=== PATIENT | female | born 1955 | race Caucasian/White ===

== ENCOUNTER → 2018-09-12 | Outpatient (CLI) | payer BC ==
--- NOTE | 2018-09-12 10:45 | MM ---
Reason for exam: additional evaluation requested from prior study. Last mammogram was performed 2 years and 8 months ago. History: Patient is postmenopausal. Benign excisional biopsy of the right breast, 1995. Taking estrogen beginning at age 49. Taking progesterone beginning at age 49. Physical Findings: Nurse Summary: 2cm nodule in the right breast at 10-11 o'clock (nurse raz). MG 3D Diag Mammo W/Cad GIL Bilateral CC and MLO view(s) were taken. Prior study comparison: January 17, 2016, bilateral MG screening mammo w CAD. May 14, 2014, bilateral MG screening mammo w CAD. The breast tissue is heterogeneously dense. This may lower the sensitivity of mammography. Stable benign calcifications. Nodular density at site of palpable abnormality. ASSESSMENT: Incomplete: need additional imaging evaluation, BI-RAD 0 RECOMMENDATION: Ultrasound of the right breast.
--- NOTE | 2018-09-12 10:53 | USB ---
Reason for exam: additional evaluation requested from abnormal screening. History: Patient is postmenopausal. Benign excisional biopsy of the right breast, 1995. Taking estrogen beginning at age 49. Taking progesterone beginning at age 49. US Breast Limited RT Right limited breast ultrasound including focal area of concern, retroareolar and axilla demonstrates a 0.4 x 0.3 x 0.5cm cystic lesion at 9 o'clock, a 0.6 x 0.3 x 0.5cm cystic lesion at 9 o'clock, a 0.5 x 0.3 x 0.4cm mixed lesion at 10 o'clock and ducts at 10 o'clock. These results were verbally communicated with the patient and result sheet given to the patient on 09/12/18. ASSESSMENT: Benign, BI-RAD 2 RECOMMENDATION: Routine screening mammogram of both breasts in 1 year. Manage patient on a clinical basis.
== END | disposition home or self-care (01) ==
LOC: RADMAMWWP 08:22
PROVIDERS: ATTEND Internal Medicine
DX: R92.8 Other abnormal and inconclusive findings on diagnostic imaging of breast (principal)
CPT/HCPCS: 77062; 77066

== ENCOUNTER → 2018-10-10 | Outpatient (CLI) | payer BC ==
--- NOTE | 2018-10-10 12:54 | BD ---
EXAMINATION TYPE: Axial Bone Density DATE OF EXAM: 10/10/2018 CLINICAL HISTORY: Postmenopausal female. Osteoporosis screening. Height: 63 inches Weight: 180 FRAX RISK QUESTIONS: Alcohol (3 or more units per day): no Family History (Parent hip fracture): no Glucocorticoids (More than 3mos): no (Ex: prednisone, prednisolone, methylprednisolone, dexamethasone, and hydrocortisone). History of Fracture in Adulthood: yes, ankle Secondary Osteoporosis: 1. Type 1 Diabetes: no 2. Hyperthyroidism: no 3. Menopause before 45: no 4. Malnutrition: no 5. Chronic liver disease: no Rheumatoid Arthritis: no Current Tobacco Use: no RISK FACTORS HISTORY OF: Family History of Osteoporosis: unsure Active: yes Diet low in dairy products/other sources of calcium: cannot have dairy Postmenopausal woman: yes Take estrogen and/or progesterone medications: not now How long: about 10 years Lost more than 2 inches in height since high school: no Frequent falls: no Poor Health: no Hyperparathyroidism: no Adrenal Insufficiency: no MEDICATIONS: Prednisone or other steroids: no Thyroid Medications: yes Which medication: various over the years How Lon-30 years Osteoporosis Medications: no Additional Medications: calcium/VitD Additional History: EXAM MEASUREMENTS: Bone mineral densitometry was performed using the Deltasight System. Bone mineral density as measured about the Lumbar spine is: ----- L1-L4(G/cm2): 1.307 T Score Values are as follows: ----- L2: 0.6 ----- L3: 1.4 ----- L4: 1.9 ----- L1-L4: 1.1 Bone mineral density has: Decreased -2.0% since study of: 01/17/2016 Bone mineral density about the R hip (g/cm2): 0.982 Bone mineral density about the L hip (g/cm2): 0.987 T Score values are as follows: -----R Neck: -0.4 -----L Neck: -0.4 -----R Total: 0.4 -----L Total: 0.5 Bone mineral density has: Decreased -1.8% since study of: 01/17/2016 IMPRESSION: Normal (Values between +1 and -1 indicate normal bone mass). Consider repeating this study in 5 year s or sooner if there is some new clinical indication. NOTE: T-SCORE=SD OF THE YOUNG ADULT MEAN.
== END | disposition home or self-care (01) ==
LOC: RADBDWWP 09-06 09:42
PROVIDERS: ATTEND Internal Medicine
DX: Z13.820 Encounter for screening for osteoporosis (principal)
CPT/HCPCS: 77080

== ENCOUNTER → 2019-08-01 | Outpatient (CLI) | payer BC ==
--- NOTE | 2019-08-01 10:19 | MM ---
Reason for exam: clinical finding. Last mammogram was performed 11 months ago. History: Patient is postmenopausal. Benign excisional biopsy of the right breast, 1995. Taking estrogen beginning at age 49. Taking progesterone beginning at age 49. Indicated problem(s): pain in the left breast. Physical Findings: Nurse did not find any significant physical abnormalities on exam. MG 3D Diag Mammo W/Cad LT CC and MLO view(s) were taken of the left breast. Prior study comparison: September 12, 2018, bilateral MG 3d diag mammo w/cad GIL. January 17, 2016, bilateral MG screening mammo w CAD. The breast tissue is heterogeneously dense. This may lower the sensitivity of mammography. Benign appearing calcifications in the left breast. No suspicious abnormality. These results were verbally communicated with the patient and result sheet given to the patient on 08/01/19. ASSESSMENT: Incomplete: need additional imaging evaluation, BI-RAD 0 RECOMMENDATION: Ultrasound of the left breast. (pain)
--- NOTE | 2019-08-01 10:21 | USB ---
Reason for exam: additional evaluation requested from abnormal screening. History: Patient is postmenopausal. Benign excisional biopsy of the right breast, 1995. Taking estrogen beginning at age 49. Taking progesterone beginning at age 49. US Breast LT Left complete breast ultrasound includes all four quadrants, the retroareolar region and axilla. Finding demonstrates ductal ectasia at the posterior nipple, a 0.5 x 0.3 x 0.4cm oval, cystic, benign lesion at 2 o'clock and a 0.8 x 0.4 x 0.5cm oval, cystic, benign cluster at 1 o'clock. These results were verbally communicated with the patient and result sheet given to the patient on 08/01/19. ASSESSMENT: Benign, BI-RAD 2 RECOMMENDATION: Routine screening mammogram of both breasts in 2 months. Back on schedule for September 2019.
== END | disposition home or self-care (01) ==
LOC: RADMAMWWP 08:19
PROVIDERS: ATTEND Obstetrics & Gynecology
DX: N64.4 Mastodynia (principal); R92.8 Other abnormal and inconclusive findings on diagnostic imaging of breast
CPT/HCPCS: 77061; 77065

== ENCOUNTER → 2019-11-29 | Outpatient (CLI) | payer BC ==
--- NOTE | 2019-11-30 13:46 | MM ---
Reason for exam: screening (asymptomatic). Last mammogram was performed 4 months ago. History: Patient is postmenopausal. Benign excisional biopsy of the right breast, 1995. Taking estrogen beginning at age 49. Taking progesterone beginning at age 49. Physical Findings: A clinical breast exam by your physician is recommended on an annual basis and results should be correlated with mammographic findings. MG 3D Screening Mammo W/Cad Bilateral CC and MLO view(s) were taken. Prior study comparison: August 01, 2019, left breast MG 3d diag mammo w/cad LT. September 12, 2018, bilateral MG 3d diag mammo w/cad GIL. The breast tissue is heterogeneously dense. This may lower the sensitivity of mammography. Stable benign calcifications. There is no discrete abnormality. No significant changes when compared with prior studies. ASSESSMENT: Benign, BI-RAD 2 RECOMMENDATION: Routine screening mammogram of both breasts in 1 year.
== END | disposition home or self-care (01) ==
LOC: RADMAMWWP 12:35
PROVIDERS: ATTEND Obstetrics & Gynecology
DX: Z12.31 Encounter for screening mammogram for malignant neoplasm of breast (principal)
CPT/HCPCS: 77063; 77067

== ENCOUNTER 2021-10-06 09:54 | Observation (INO) | payer BC ==
[2021-10-06] MEDS ORDERED: NITROGLYCERIN OINT 1 INCH/GM PACKET TOPICAL STA (10:38)
--- NOTE | 2021-10-06 10:41 | ED ---
General Adult HPI - General Chief complaint: Chest Pain Stated complaint: chest tightness, lightheaded Time Seen by Provider: 10/06/21 10:20 Source: patient, RN notes reviewed Mode of arrival: ambulatory Limitations: no limitations - History of Present Illness Initial comments: Patient is a pleasant 65-year-old female presenting to the emergency department with concerns for chest discomfort. Onset of symptoms was yesterday. Discomfort is mild. Discomfort feels like indigestion. Her some mild associated back discomfort. Patient has some associated dyspnea, lightheadedness, nausea and sweating. No history of similar symptoms previously. No leg pain or leg swelling. Discomfort is currently rated 2 or 3/10. Blood pressure was as high as 180/104 home. - Related Data Home Medications Medication Instructions Recorded Confirmed Albuterol Sulfate [Proventil Hfa] 2 puff INHALATION RT-Q4H PRN 10/06/21 10/06/21 Cholecalciferol [Vitamin D3 (25 25 mcg PO DAILY 10/06/21 10/06/21 Mcg = 1000 Iu)] LORazepam [Ativan] 0.5 - 1 mg PO Q6H PRN 10/06/21 10/06/21 Levothyroxine Sodium [Tirosint] 112 mcg PO DAILY 10/06/21 10/06/21 Mometasone Furoate [Asmanex Hfa] 1 puff INHALATION RT-BID PRN 10/06/21 10/06/21 Multivitamins, Thera [Multivitamin 1 tab PO DAILY 10/06/21 10/06/21 (formulary)] Allergies Allergy/AdvReac Type Severity Reaction Status Date / Time aspirin Allergy Abdominal Verified 10/06/21 11:32 Pain,VOMITING clarithromycin [From Biaxin] Allergy Unknown Verified 10/06/21 11:32 codeine Allergy Nausea & Verified 10/06/21 11:32 Vomiting latex Allergy Rash/Hives, Verified 10/06/21 11:32 SWELLING levofloxacin [From Levaquin] Allergy Hallucinati Verified 10/06/21 11:32 ons Penicillins Allergy Rash/Hives Verified 10/06/21 11:32 Sulfa (Sulfonamide Allergy Rash/Hives Verified 10/06/21 11:32 Antibiotics) cephalexin monohydrate AdvReac Abdominal Verified 10/06/21 11:32 [From Keflex] Pain Review of Systems ROS Statement: Those systems with pertinent positive or pertinent negative responses have been documented in the HPI. ROS Other: All systems not noted in ROS Statement are negative. Constitutional: Denies: fever Eyes: Denies: eye pain ENT: Denies: ear pain Respiratory: Reports: as per HPI Cardiovascular: Reports: as per HPI, chest pain Endocrine: Denies: fatigue Gastrointestinal: Denies: abdominal pain Genitourinary: Denies: dysuria Musculoskeletal: Reports: as per HPI Skin: Denies: rash Neurological: Denies: weakness Past Medical History Past Medical History: Asthma Additional Past Medical History / Comment(s): "PRE DIABETIC-INSULIN RESISTANT" History of Any Multi-Drug Resistant Organisms: None Reported Past Surgical History: Breast Surgery, Section, Cholecystectomy, Hysterectomy, Tonsillectomy, Uterine Ablation Additional Past Surgical History / Comment(s): VARICOSE VEIN-RIGHT LEG,BLADDER SUSPENSION Past Anesthesia/Blood Transfusion Reactions: Motion Sickness, Postoperative Nausea & Vomiting (PONV) Past Psychological History: No Psychological Hx Reported Smoking Status: Former smoker Past Alcohol Use History: None Reported Past Drug Use History: None Reported - Past Family History Sister(s) Family Medical History: Cancer Mother Family Medical History: Deep Vein Thrombosis (DVT) General Exam Limitations: no limitations General appearance: alert, in no apparent distress Head exam: Present: normocephalic Eye exam: Present: normal appearance Neck exam: Present: normal inspection Respiratory exam: Present: normal lung sounds bilaterally. Absent: chest wall tenderness Cardiovascular Exam: Present: regular rate, normal rhythm Expanded Peripheral pulses: 2+: Radial (R), Radial (L), Dorsalis Pedis (R), Dorsalis Pedis (L) GI/Abdominal exam: Present: soft. Absent: tenderness Extremities exam: Present: normal inspection. Absent: pedal edema, calf tenderness Back exam: Present: normal inspection. Absent: tenderness Neurological exam: Present: alert Psychiatric exam: Present: normal affect, normal mood Skin exam: Present: normal color Course Vital Signs 10/06/21 10/06/21 10:11 11:00 Temperature 98.1 F Pulse Rate 82 69 Respiratory 18 18 Rate Blood Pressure 171/99 147/89 O2 Sat by Pulse 99 98 Oximetry EKG Findings - EKG Comments: EKG Findings:: No sinus rhythm rate 67. ND 182. QRS 94. QT 402. QTC 424. Left axis. LVH criteria. No acute ST change. Medical Decision Making - Medical Decision Making Patient reevaluated. Patient and family updated on results and plan. Both are specifically updated on CT results. Case also discussed with Dr. Workman, covering for Dr. moore who will admit. Also updated on CT results. - Lab Data Result diagrams: 10/06/21 10:58 10/06/21 10:58 Lab Results 10/06/21 10/06/21 10/06/21 Range/Units 10:58 10:58 10:58 WBC 8.0 (3.8-10.6) k/uL RBC 4.62 (3.80-5.40) m/uL Hgb 14.5 (11.4-16.0) gm/dL Hct 42.5 (34.0-46.0) % MCV 92.1 (80.0-100.0) fL MCH 31.3 (25.0-35.0) pg MCHC 34.0 (31.0-37.0) g/dL RDW 13.6 (11.5-15.5) % Plt Count 267 (150-450) k/uL MPV 6.5 Neutrophils % 68 % Lymphocytes % 25 % Monocytes % 5 % Eosinophils % 2 % Basophils % 0 % Neutrophils # 5.4 (1.3-7.7) k/uL Lymphocytes # 2.0 (1.0-4.8) k/uL Monocytes # 0.4 (0-1.0) k/uL Eosinophils # 0.2 (0-0.7) k/uL Basophils # 0.0 (0-0.2) k/uL PT 9.5 (9.0-12.0) sec INR 0.9 (<1.2) APTT 21.7 L (22.0-30.0) sec D-Dimer 0.87 H (<0.60) mg/L FEU Sodium 137 (137-145) mmol/L Potassium 4.0 (3.5-5.1) mmol/L Chloride 106 (98-107) mmol/L Carbon Dioxide 25 (22-30) mmol/L Anion Gap 6 mmol/L BUN 14 (7-17) mg/dL Creatinine 0.70 (0.52-1.04) mg/dL Est GFR (CKD-EPI)AfAm >90 (>60 ml/min/1.73 sqM) Est GFR (CKD-EPI)NonAf >90 (>60 ml/min/1.73 sqM) Glucose 102 H (74-99) mg/dL Calcium 9.2 (8.4-10.2) mg/dL Magnesium 1.9 (1.6-2.3) mg/dL Total Bilirubin 0.5 (0.2-1.3) mg/dL AST 21 (14-36) U/L ALT 25 (4-34) U/L Alkaline Phosphatase 84 (38-126) U/L Troponin I (0.000-0.034) ng/mL Total Protein 6.7 (6.3-8.2) g/dL Albumin 3.8 (3.5-5.0) g/dL 10/06/21 Range/Units 10:58 WBC (3.8-10.6) k/uL RBC (3.80-5.40) m/uL Hgb (11.4-16.0) gm/dL Hct (34.0-46.0) % MCV (80.0-100.0) fL MCH (25.0-35.0) pg MCHC (31.0-37.0) g/dL RDW (11.5-15.5) % Plt Count (150-450) k/uL MPV Neutrophils % % Lymphocytes % % Monocytes % % Eosinophils % % Basophils % % Neutrophils # (1.3-7.7) k/uL Lymphocytes # (1.0-4.8) k/uL Monocytes # (0-1.0) k/uL Eosinophils # (0-0.7) k/uL Basophils # (0-0.2) k/uL PT (9.0-12.0) sec INR (<1.2) APTT (22.0-30.0) sec D-Dimer (<0.60) mg/L FEU Sodium (137-145) mmol/L Potassium (3.5-5.1) mmol/L Chloride (98-107) mmol/L Carbon Dioxide (22-30) mmol/L Anion Gap mmol/L BUN (7-17) mg/dL Creatinine (0.52-1.04) mg/dL Est GFR (CKD-EPI)AfAm (>60 ml/min/1.73 sqM) Est GFR (CKD-EPI)NonAf (>60 ml/min/1.73 sqM) Glucose (74-99) mg/dL Calcium (8.4-10.2) mg/dL Magnesium (1.6-2.3) mg/dL Total Bilirubin (0.2-1.3) mg/dL AST (14-36) U/L ALT (4-34) U/L Alkaline Phosphatase (38-126) U/L Troponin I <0.012 (0.000-0.034) ng/mL Total Protein (6.3-8.2) g/dL Albumin (3.5-5.0) g/dL - Radiology Data Radiology results: report reviewed (CT angios chest shows no pulmonary embolism. Right apex nodule versus pneumonitis versus other.), image reviewed (Chest x- ray shows no acute process) Disposition Clinical Impression: Chest pain Disposition: ADMITTED IP TO THIS [facility] Is patient prescribed a controlled substance at d/c from ED?: No Referrals: Linda Moore MD [Primary Care Provider] - 1-2 days Decision Time: 13:33
[2021-10-06 11:08] LABS: Basophils % (A) 0 %; Eosinophils # (A) 0.2 k/uL (0-0.7); Eosinophils % (A) 2 %; HCT 42.5 % (34.0-46.0); HGB 14.5 gm/dL (11.4-16.0); Lymphocytes % (A) 25 %; MCH 31.3 pg (25.0-35.0); MCV 92.1 fL (80.0-100.0); Mean Platelet Volume 6.5; Monocytes # (A) 0.4 k/uL (0-1.0); Monocytes % (A) 5 %; Neutrophils # (A) 5.4 k/uL (1.3-7.7); Neutrophils % (A) 68 %; Platelet Count 267 k/uL (150-450); RBC 4.62 m/uL (3.80-5.40); RDW 13.6 % (11.5-15.5)
--- NOTE | 2021-10-06 11:31 | XR ---
EXAMINATION TYPE: XR chest 2V DATE OF EXAM: 10/06/2021 COMPARISON: NONE TECHNIQUE: PA and lateral views submitted. HISTORY: Chest pain FINDINGS: The lungs are clear and there is no pneumothorax, pleural effusion, or focal pneumonia. Hypertrophi c and degenerative changes of the spine. IMPRESSION: 1. No acute process.
[2021-10-06 11:32] LABS: INR 0.9 (<1.2); Prothrombin Time 9.5 sec (9.0-12.0)
[2021-10-06 11:38] LABS: Partial Thromboplastin Time 21.7 sec (22.0-30.0)
[2021-10-06 11:45] LABS: ALT 25 U/L (4-34); AST 21 U/L (14-36); African American GFR (CKD) >90 (>60 ml/min/1.73 sqM); Albumin 3.8 g/dL (3.5-5.0); Alkaline Phosphatase 84 U/L (38-126); Anion Gap 6 mmol/L; Blood Urea Nitrogen 14 mg/dL (7-17); Calcium 9.2 mg/dL (8.4-10.2); Carbon Dioxide 25 mmol/L (22-30); Chloride 106 mmol/L (98-107); Glucose 102 mg/dL (74-99); Magnesium 1.9 mg/dL (1.6-2.3); Non-African American GFR(CKD) >90 (>60 ml/min/1.73 sqM); Sodium 137 mmol/L (137-145); Total Bilirubin 0.5 mg/dL (0.2-1.3); Total Protein 6.7 g/dL (6.3-8.2)
--- NOTE | 2021-10-06 12:37 | CT ---
CT CHEST FOR PULMONARY EMBOLISM. EXAMINATION TYPE: CT angio chest DATE OF EXAM: 10/06/2021 INDICATION: Elevated d dimer CT DLP: 430.6 mGycm, Automated exposure control for dose reduction was used. CONTRAST: Patient injected with 100 mL of Isovue 370. COMPARISON: None TECHNIQUE: CT of the chest is performed on a spiral scan at 2 mm thick sections. Study is performed with intravenous contrast timed for evaluation for pulmonary embolism. This will limit additional po rtions of the evaluation. 3-D MIP images reconstructed by the technologist are reviewed on the compu ter in the coronal and sagittal planes. FINDINGS: No persistent filling defects are evident to suggest an acute pulmonary embolism. No mediastinal or hilar adenopathy enlarged by CT criteria is evident. The ascending aorta diameter at the level of the main pulmonary artery is 3.6 cm. The main pulmonary artery diameter at the bifur cation is 2.9 cm. There is an irregular area of pneumonitis within the right apex measuring approximately 1.2 cm in bladimir meter. Neoplasm and infectious etiology should be considered. Follow-up is recommended. Limited CT section through the upper abdomen are unremarkable. IMPRESSIONS: 1. No acute pulmonary embolism. 2. Irregular nodularity or pneumonitis right apex measuring 1.2 cm. Neoplasm and infectious etiologie s are within the differential. Follow-up is recommended.
[2021-10-06] MEDS ORDERED: LORazepam 1 MG TAB PO STA (13:33)
[2021-10-06] MEDS ORDERED: NITROGLYCERIN SL TABS 0.4 MG TAB SUBLINGUAL PRN (13:33)
[2021-10-06] MEDS ORDERED: ALBUTEROL NEBULIZED 2.5 MG/3 ML INHALATION PRN (13:47)
[2021-10-06] MEDS ORDERED: ASPIRIN 325 MG TAB PO STA (13:48)
[2021-10-06] MEDS ORDERED: LORazepam 1 MG TAB PO PRN (14:31)
--- NOTE | 2021-10-06 18:15 | P.HPIM ---
History of Present Illness H&P Date: 10/06/21 Chief Complaint: Chest pain, hypertension 65-year-old woman with medical history of anxiety/panic disorder presented with chest pain, hypertension. Patient says that she's been anxious since Wednesday given that there are lots of preparations that she was responsible for the holidays and lots of family visiting her. She had a panic attack on Wednesday, and since that time is continued to be anxious. She has had episodes of panic before in which she is prescribed Ativan when necessary. She had to take her Ativan several times over the course of this previous week. Normally, she has 12 pills of Ativan which lasts for several months, however, she has had to use up her supply over this week. Today, she checked her blood pressure several times and noted that she was very hypertensive, in the 160s to 170s. She asked that her daughter, who is a nurse, take her blood pressure manually and this also demonstrated an elevated value. She then started to experience some chest pressure, which she relates that she feels is related to her anxiety, however, to be safe she present to the emergency room for further evaluation. She reports palpitations, chest pressure. She denies fevers, chills, nausea, vomiting, cough, dyspnea, abdominal pain, diarrhea, constipation, numbness/weakness. Patient is nervous about getting Covid while hospitalized. We discussed vac cination status, and she was told by her primary care physician that she should not get the Covid vaccine due to concerns of ALLERGIES and hypercoagulability, however, I did associate counsel the patient that this was not the case and that she should proceed with vaccination given the fact that Covid is far more likely to cause issues with blood clots within the vaccine. In the emergency room, patient was afebrile, 171/99, heart rate 82, 99% on room air. CBC was unremarkable. D-dimer was mildly elevated at 0.87. Chemistries were unremarkable. LFTs were unremarkable. Troponin was negative 2. Covid was negative. EKG demonstrated normal sinus rhythm with no ischemic changes. Chest x-ray was normal. CTA demonstrated right-sided apical pneumonitis versus nodularity, but patient is asymptomatic from this. Review of Systems All Systems reviewed and pertinent positives and negatives noted in HPI, all other symptoms are negative Past Medical History Past Medical History: Asthma Additional Past Medical History / Comment(s): "PRE DIABETIC-INSULIN RESISTANT" History of Any Multi-Drug Resistant Organisms: None Reported Past Surgical History: Breast Surgery, Section, Cholecystectomy, Hysterectomy, Tonsillectomy, Uterine Ablation Additional Past Surgical History / Comment(s): VARICOSE VEIN-RIGHT LEG,BLADDER SUSPENSION Past Anesthesia/Blood Transfusion Reactions: Motion Sickness, Postoperative Nausea & Vomiting (PONV) Past Psychological History: No Psychological Hx Reported Smoking Status: Former smoker Past Alcohol Use History: None Reported Past Drug Use History: None Reported - Past Family History Sister(s) Family Medical History: Cancer Mother Family Medical History: Deep Vein Thrombosis (DVT) Medications and Allergies Home Medications Medication Instructions Recorded Confirmed Type Albuterol Sulfate [Proventil Hfa] 2 puff INHALATION RT-Q4H PRN 10/06/21 10/06/21 History Cholecalciferol [Vitamin D3 (25 25 mcg PO DAILY 10/06/21 10/06/21 History Mcg = 1000 Iu)] LORazepam [Ativan] 0.5 - 1 mg PO Q6H PRN 10/06/21 10/06/21 History Levothyroxine Sodium [Tirosint] 112 mcg PO DAILY 10/06/21 10/06/21 History Mometasone Furoate [Asmanex Hfa] 1 puff INHALATION RT-BID PRN 10/06/21 10/06/21 History Multivitamins, Thera [Multivitamin 1 tab PO DAILY 10/06/21 10/06/21 History (formulary)] Allergies Allergy/AdvReac Type Severity Reaction Status Date / Time aspirin Allergy Abdominal Verified 10/06/21 11:32 Pain,VOMITING clarithromycin [From Biaxin] Allergy Unknown Verified 10/06/21 11:32 codeine Allergy Nausea & Verified 10/06/21 11:32 Vomiting latex Allergy Rash/Hives, Verified 10/06/21 11:32 SWELLING levofloxacin [From Levaquin] Allergy Hallucinati Verified 10/06/21 11:32 ons Penicillins Allergy Rash/Hives Verified 10/06/21 11:32 Sulfa (Sulfonamide Allergy Rash/Hives Verified 10/06/21 11:32 Antibiotics) cephalexin monohydrate AdvReac Abdominal Verified 10/06/21 11:32 [From Keflex] Pain Physical Exam Osteopathic Statement: *. No significant issues noted on an osteopathic structural exam other than those noted in the History and Physical/Consult. Vitals: Vital Signs Temp Pulse Resp BP Pulse Ox 10/06/21 11:00 69 18 147/89 98 10/06/21 10:11 98.1 F 82 18 171/99 99 Intake and Output 10/06/21 10/06/21 10/06/21 06:59 14:59 22:59 Other: Weight 86.183 kg Gen: awake, alert HEENT: normocephalic, atraumatic, good hearing acuity, moist mucous membranes Resp: good air exchange, breathing comfortably with no accessory muscle use, clear to auscultation bilaterally without wheezes or crackles CVS: good distal perfusion x 4, regular rate and rhythm without murmurs GI: soft, NTTP, ND : no SPT, no CVAT, velasco catheter not present MSK: no pitting edema, no clubbing Neuro: non-focal, moving all extremities Psych: cooperative, euthymic mood Results CBC & Chem 7: 10/06/21 10:58 10/06/21 10:58 Labs: Abnormal Lab Results - Last 24 Hours (Table) 10/06/21 10/06/21 Range/Units 10:58 10:58 APTT 21.7 L (22.0-30.0) sec D-Dimer 0.87 H (<0.60) mg/L FEU Glucose 102 H (74-99) mg/dL Assessment and Plan Assessment: Chest pressure Anxiety disorder -Admit to observation, telemetry -Trend troponins -Ativan when necessary -Losartan 25 mg daily -ASA, statin Pulmonary nodule Asthma -Patient will need repeat imaging in 6 months -Albuterol when necessary -Resume home ICS Patient is a full code
[2021-10-06] MEDS: NITROGLYCERIN OINT 1 INCH/GM PACKET TOPICAL SCH ×2 (19:58→23:53)
[2021-10-06] MEDS ORDERED: METOPROLOL TARTRATE 25 MG TAB PO SCH (21:00)
[2021-10-06] MEDS: FLUTICASONE 110 MCG INHALER INHALATION SCH (21:02)
[2021-10-06 21:24] VITALS: TEMP 97.5
[2021-10-07] MEDS: NITROGLYCERIN OINT 1 INCH/GM PACKET TOPICAL SCH (05:28)
[2021-10-07] MEDS ORDERED: LEVOTHYROXINE 112 MCG TAB PO SCH (06:30)
[2021-10-07 08:23] VITALS: BP 139/87; PULSE 64; RESP 17
[2021-10-07] MEDS: FLUTICASONE 110 MCG INHALER INHALATION SCH (08:36)
[2021-10-07] MEDS ORDERED: MULTIVITAMINS, THERA 1 EACH TAB PO SCH (09:00)
[2021-10-07] MEDS ORDERED: CHOLECALCIFEROL 25 MCG (1000 IU) TABLET PO SCH (09:00)
[2021-10-07] MEDS ORDERED: ASPIRIN 81 MG PO SCH (09:00)
--- NOTE | 2021-10-07 09:54 | P.CRDCN ---
History of Present Illness History of present illness: This is a 65 year old female with a past medical history of asthma, hypothyroidism, former tobacco use, anxiety. 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 We are consulted for chest pain. Patient presents to the emergency department with complaints of chest discomfort. Patient states that she's been anxious since Wednesday given that there are lots of preparations that she was responsible for the holidays and lots of family visiting her. She had a panic attack on Wednesday. She has had episodes of panic before in which she is prescribed Ativan when necessary. She states she has chest tightness in the center of her chest when her anxiety comes on, it is relieved once she is more relaxed. Her chest discomfort is nonradiating, nonexertional. She denies any associated shortness of breath, nausea, lightheadedness, dizziness, diaphoresis, palpitations, nausea. Yesterday, she had another episode of anxiety and chest discomfort, she checked her blood pressure several times and noted to be 160s/100s. She asked that her daughter, take her blood pressure manually and her BP remained elevated. She denies fevers, chills, nausea, vomiting, cough, dyspnea, abdominal pain, diarrhea, constipation, numbness/weakness. She denies any history of [place], coronary disease, hypertension, diabetes, stroke. She denies any family history of coronary artery disease. She does have a family history of hypertension. She states she did smoke but quit over 20 years ago. Patient pressure was elevated on admission 171/99, patient was started on metoprolol tartrate 25 mg twice a day. Her blood pressure and heart rate have improved DIAGNOSTICS EKG reveals sinus rhythm, heart rate 67, T wave inversion in lead III and aVF. No prior EKG to compare. CTA without acute pulmonary embolism. Irregular nodularity or pneumonitis right apex measuring 1.2 cm neoplasm infectious etiologies are within the differential Telemetry tracings indicate sinus rhythm, heart rate 5560s, occasionally tachycardic overnight. Chest xray no acute cardiopulmonary process Laboratory reviewed, CBC unremarkable, d-dimer 0.87, sodium 137, potassium 4.0, BUN 14, Serum creatinine 0.7, magnesium 1.9, troponin negative 3, cooperative 19 PCR negative Current home medications include multivitamin, levothyroxine 112mcg daily, when necessary Ativan, albuterol REVIEW OF SYSTEMS At the time of my exam: CONSTITUTIONAL: Denies fever or chills. +anxiety CARDIOVASCULAR: +chest pain, Denies shortness of breath, orthopnea, PND or palpitations. RESPIRATORY: Denies cough. GASTROINTESTINAL: Denies abdominal pain, diarrhea, constipation, nausea or vomiting. MUSCULOSKELETAL: Denies myalgias. NEUROLOGIC: Denies numbness, tingling, headache or weakness. ENDOCRINE: Denies fatigue, weight change, polydipsia or polyurina. GENITOURINARY: Denies burning, hematuria or urgency with micturation. HEMATOLOGIC: Denies history of anemia or bleeding. PHYSICAL EXAMINATION Blood pressure 133/78, heart rate 73, afebrile, oxygen saturation is greater than 92% on room air CONSTITUTIONAL: No apparent distress. HEENT: Head is normocephalic. Pupils are equal, round. Sclerae anicteric. Mucous membranes of the mouth are moist. No JVD. No carotid bruit. CHEST EXAMINATION: Lungs are clear to auscultation. No chest wall tenderness is noted on palpation or with deep breathing. HEART EXAMINATION: Regular rate and rhythm. S1, S2 heard. No murmurs, gallops or rub. ABDOMEN: Soft, nontender. Positive bowel sounds. EXTREMITIES: 2+ peripheral pulses, no lower extremity edema and no calf tenderness. SKIN: warm, dry NEUROLOGIC EXAMINATION: Patient is awake, alert and oriented x3. ASSESSMENT Chest pain, atypical, acute coronary syndrome has been ruled out History of asthma Hypothyroidism Anxiety PLAN -An acute coronary event has been ruled out with no EKG evidence of ischemia and negative cardiac enzymes. -Perform stress echo test to assess for stress induced cardiac ischemia. If abnormal will consider coronary angiography. -Continue metoprolol tartrate 25mg BID -If stress test is normal with no acute findings, okay to discharge from cardiology perspective. Patient didn't follow up outpatient. Thank you kindly for this consultation. Nurse Practitioner note has been reviewed, I agree with a documented findings and plan of care. Patient was seen and examined. Past Medical History Past Medical History: Asthma Additional Past Medical History / Comment(s): "PRE DIABETIC-INSULIN RESISTANT" History of Any Multi-Drug Resistant Organisms: None Reported Past Surgical History: Breast Surgery, Section, Cholecystectomy, Hysterectomy, Tonsillectomy, Uterine Ablation Additional Past Surgical History / Comment(s): VARICOSE VEIN-RIGHT LEG,BLADDER SUSPENSION Past Anesthesia/Blood Transfusion Reactions: Motion Sickness, Postoperative Nausea & Vomiting (PONV) Past Psychological History: No Psychological Hx Reported Smoking Status: Former smoker Past Alcohol Use History: None Reported Past Drug Use History: None Reported - Past Family History Sister(s) Family Medical History: Cancer Mother Family Medical History: Deep Vein Thrombosis (DVT) Medications and Allergies Home Medications Medication Instructions Recorded Confirmed Type Albuterol Sulfate [Proventil Hfa] 2 puff INHALATION RT-Q4H PRN 10/06/21 10/06/21 History Cholecalciferol [Vitamin D3 (25 25 mcg PO DAILY 10/06/21 10/06/21 History Mcg = 1000 Iu)] LORazepam [Ativan] 0.5 - 1 mg PO Q6H PRN 10/06/21 10/06/21 History Levothyroxine Sodium [Tirosint] 112 mcg PO DAILY 10/06/21 10/06/21 History Mometasone Furoate [Asmanex Hfa] 1 puff INHALATION RT-BID PRN 10/06/21 10/06/21 History Multivitamins, Thera [Multivitamin 1 tab PO DAILY 10/06/21 10/06/21 History (formulary)] Allergies Allergy/AdvReac Type Severity Reaction Status Date / Time aspirin Allergy Abdominal Verified 10/06/21 11:32 Pain,VOMITING clarithromycin [From Biaxin] Allergy Unknown Verified 10/06/21 11:32 codeine Allergy Nausea & Verified 10/06/21 11:32 Vomiting latex Allergy Rash/Hives, Verified 10/06/21 11:32 SWELLING levofloxacin [From Levaquin] Allergy Hallucinati Verified 10/06/21 11:32 ons Penicillins Allergy Rash/Hives Verified 10/06/21 11:32 Sulfa (Sulfonamide Allergy Rash/Hives Verified 10/06/21 11:32 Antibiotics) cephalexin monohydrate AdvReac Abdominal Verified 10/06/21 11:32 [From Keflex] Pain Physical Exam Vitals: Vital Signs Temp Pulse Resp BP Pulse Ox 10/06/21 11:00 69 18 147/89 98 10/06/21 10:11 98.1 F 82 18 171/99 99 Intake and Output 10/05/21 10/06/21 10/06/21 22:59 06:59 14:59 Other: Weight 86.183 kg Results 10/06/21 10:58 10/06/21 10:58 Cardiac Enzymes 10/06/21 10/06/21 Range/Units 10:58 10:58 AST 21 (14-36) U/L Troponin I <0.012 (0.000-0.034) ng/mL Coagulation 10/06/21 Range/Units 10:58 PT 9.5 (9.0-12.0) sec APTT 21.7 L (22.0-30.0) sec CBC 10/06/21 Range/Units 10:58 WBC 8.0 (3.8-10.6) k/uL RBC 4.62 (3.80-5.40) m/uL Hgb 14.5 (11.4-16.0) gm/dL Hct 42.5 (34.0-46.0) % Plt Count 267 (150-450) k/uL Comprehensive Metabolic Panel 10/06/21 Range/Units 10:58 Sodium 137 (137-145) mmol/L Potassium 4.0 (3.5-5.1) mmol/L Chloride 106 (98-107) mmol/L Carbon Dioxide 25 (22-30) mmol/L BUN 14 (7-17) mg/dL Creatinine 0.70 (0.52-1.04) mg/dL Glucose 102 H (74-99) mg/dL Calcium 9.2 (8.4-10.2) mg/dL AST 21 (14-36) U/L ALT 25 (4-34) U/L Alkaline Phosphatase 84 (38-126) U/L Total Protein 6.7 (6.3-8.2) g/dL Albumin 3.8 (3.5-5.0) g/dL Current Medications Generic Name Dose Route Start Last Admin Trade Name Freq PRN Reason Stop Dose Admin Albuterol Sulfate 2.5 mg 10/06/21 13:47 Albuterol Nebulized 2.5 Mg/3 Ml INHALATION RT-Q4H PRN Shortness Of Breath Aspirin 81 mg 10/07/21 09:00 Aspirin 81 Mg PO DAILY JOSE Cholecalciferol 25 mcg 10/07/21 09:00 Cholecalciferol 25 Mcg (1000 Iu) Tablet PO DAILY JOSE Fluticasone Propionate 2 puff 10/06/21 20:00 Fluticasone 110 Mcg Inhaler INHALATION RT-BID JOSE Levothyroxine Sodium 112 mcg 10/07/21 06:30 Levothyroxine 112 Mcg Tab PO DAILY@0630 JOSE Lorazepam 1 mg 10/06/21 14:31 Lorazepam 1 Mg Tab PO Q6H PRN Anxiety Metoprolol Tartrate 25 mg 10/06/21 21:00 Metoprolol Tartrate 25 Mg Tab PO BID REPLACED BY [facility] Multivitamins 1 each 10/07/21 09:00 Multivitamins, Thera 1 Each Tab PO DAILY REPLACED BY [facility] Nitroglycerin 0.4 mg 10/06/21 13:33 Nitroglycerin Sl Tabs 0.4 Mg Tab SUBLINGUAL Q5M PRN Chest Pain Nitroglycerin 1 inch 10/06/21 18:00 Nitroglycerin Oint 1 Inch/Gm Packet TOPICAL Q6HR REPLACED BY [facility] Intake and Output 10/05/21 10/06/21 10/06/21 22:59 06:59 14:59 Other: Weight 86.183 kg Patient Weight 10/07/21 06:59 Weight 86.183 kg 10/06/21 10:58 10/06/21 10:58
[2021-10-07 12:37] LABS: Chol/HDL Ratio 2.39 Ratio; LDL Cholesterol,Calculated 154.1 mg/dL (0.0-131.0)
--- NOTE | 2021-10-07 15:02 | P.DS ---
Providers Date of admission: 10/06/21 13:34 Expected date of discharge: 10/07/21 Attending physician: Cody Workman MD Consults: 10/06/21 13:34 Consult Physician Urgent Consulting Provider: Jordan Mckeon Consult Reason/Comments: cp Do you want consulting provider notified?: Yes Primary care physician: Linda Valera MD Hospital Course: Chest pressure Anxiety disorder HTN Urgency -Admitted to observation, telemetry. Troponins were negative. EKG non- ischemic. Cardiology consulted and started metoprolol for anxiety and heart protection. Pt had stress echo, which was normal. Pt discharged with new medication of metoprolol, and instructions to t/u with PCP. Pulmonary nodule Asthma -Patient will need repeat imaging in 6 months -Albuterol when necessary -Resumed home ICS Assessment: Gen: awake, alert HEENT: normocephalic, atraumatic, good hearing acuity, moist mucous membranes Resp: good air exchange, breathing comfortably with no accessory muscle use, clear to auscultation bilaterally without wheezes or crackles CVS: good distal perfusion x 4, regular rate and rhythm without murmurs GI: soft, NTTP, ND : no SPT, no CVAT, velasco catheter not present MSK: no pitting edema, no clubbing Neuro: non-focal, moving all extremities Psych: cooperative, euthymic mood Patient Condition at Discharge: Good Plan - Discharge Summary Discharge Rx Participant: No New Discharge Prescriptions: New Metoprolol Tartrate [Lopressor] 25 mg PO BID #60 tab Continue Cholecalciferol [Vitamin D3 (25 Mcg = 1000 Iu)] 25 mcg PO DAILY Albuterol Sulfate [Proventil Hfa] 2 puff INHALATION RT-Q4H PRN PRN Reason: Shortness Of Breath Levothyroxine Sodium [Tirosint] 112 mcg PO DAILY LORazepam [Ativan] 0.5 - 1 mg PO Q6H PRN PRN Reason: Anxiety Mometasone Furoate [Asmanex Hfa] 1 puff INHALATION RT-BID PRN PRN Reason: Shortness Of Breath Multivitamins, Thera [Multivitamin (formulary)] 1 tab PO DAILY Discharge Medication List Albuterol Sulfate [Proventil Hfa] 2 puff INHALATION RT-Q4H PRN 10/06/21 [History] Cholecalciferol [Vitamin D3 (25 Mcg = 1000 Iu)] 25 mcg PO DAILY 10/06/21 [History] LORazepam [Ativan] 0.5 - 1 mg PO Q6H PRN 10/06/21 [History] Levothyroxine Sodium [Tirosint] 112 mcg PO DAILY 10/06/21 [History] Mometasone Furoate [Asmanex Hfa] 1 puff INHALATION RT-BID PRN 10/06/21 [History] Multivitamins, Thera [Multivitamin (formulary)] 1 tab PO DAILY 10/06/21 [History] Metoprolol Tartrate [Lopressor] 25 mg PO BID #60 tab 10/07/21 [Rx] Follow up Appointment(s)/Referral(s): Richard Nelson MD [STAFF PHYSICIAN] - 2 Weeks (Please call to schedule appointment) Linda Valera MD [Primary Care Provider] - 1-2 days Patient Instructions/Handouts: Chest Pain (DC)
--- NOTE | 2021-10-07 16:47 | ECHOS ---
STRESS ECHOCARDIOGRAM DATE OF SERVICE: 10/07/2021 INDICATIONS: Chest pain BASELINE HEART RATE: 72 BASELINE BLOOD PRESSURE: 128/53 MAXIMUM HEART RATE: 140 MAXIMUM BLOOD PRESSURE: 146/83 85% MPHR: 133 100% MPHR: 156 METS: 5.8 MAXIMUM STAGE REACHED: 2 TOTAL EXERCISE TIME: 4:00 RESULTS: Baseline EKG revealed normal sinus rhythm with nonspecific precordial T-wave abnormality. Patient walked on a standard Jacques protocol for a total duration of 4 minutes, achieved a maximal heart rate of 138 beats per minute which is more than 85% of predicted maximal. She developed fatigue and shortness of breath but did not have any angina. EKG did not reveal any ST-segment changes to indicate ischemia. By EKG criteria, this is a negative stress test with limited exercise capacity. Baseline echo images revealed normal wall motion and wall thickening of all segments. At peak exercise, there was good augmentation of left ventricular wall motion and wall thickening of all segments suggesting that there is no evidence of any stress-induced ischemia on this study. IMPRESSION: 1. Limited exercise capacity with a negative stress test by EKG criteria. 2. Normal stress echocardiogram. MMODL / IJN: [id number] /
[2021-10-07] MEDS ORDERED: METOPROLOL TARTRATE 25 MG TAB PO SCH (21:00)
== END 2021-10-07 15:02 ==
LOC: EC 09:54 → 1SOBS 13:34 → 6NMEDSUR 17:46
PROVIDERS: ADMIT Internal Medicine; ATTEND Internal Medicine
DX: R07.89 Other chest pain (principal); I16.0 Hypertensive urgency; F41.9 Anxiety disorder, unspecified; I10 Essential (primary) hypertension; F41.0 Panic disorder [episodic paroxysmal anxiety]; R79.89 Other specified abnormal findings of blood chemistry; J45.909 Unspecified asthma, uncomplicated; E88.81 Metabolic syndrome and other insulin resistance; R91.1 Solitary pulmonary nodule; E03.9 Hypothyroidism, unspecified; Z20.822 Contact with and (suspected) exposure to COVID-19; Z79.890 Hormone replacement therapy; Z79.899 Other long term (current) drug therapy; Z88.5 Allergy status to narcotic agent; Z88.0 Allergy status to penicillin; Z88.2 Allergy status to sulfonamides; Z88.8 Allergy status to other drugs, medicaments and biological substances; Z88.6 Allergy status to analgesic agent; Z88.1 Allergy status to other antibiotic agents; Z91.040 Latex allergy status; Z90.49 Acquired absence of other specified parts of digestive tract; Z90.710 Acquired absence of both cervix and uterus; Z87.891 Personal history of nicotine dependence; Z86.79 Personal history of other diseases of the circulatory system; Z98.890 Other specified postprocedural states; Z82.49 Family history of ischemic heart disease and other diseases of the circulatory system; Z80.9 Family history of malignant neoplasm, unspecified
CPT/HCPCS: 99285; 36415; 93005; 93351; 85379; 80061; 80053; 83735; 84484; 85025; 85610; 85730; 87635; 71046; 71275; G0378 ×3; Q9967

== ENCOUNTER 2021-12-18 09:36 | Observation (INO) | payer MEDICARE ==
[2021-12-18] MEDS ORDERED: SODIUM CHLORIDE 0.9% 1,000 ML IV STA (10:16)
[2021-12-18] MEDS ORDERED: SODIUM CHLORIDE 0.9% 500 ML 500 ML IV STA (10:16)
[2021-12-18] MEDS ORDERED: HYDROmorphone 0.5 MG/0.5 ML SYRINGE IVP STA ×2 (10:16→13:57)
[2021-12-18] MEDS ORDERED: ONDANSETRON 4 MG/2 ML VIAL IVP STA ×2 (10:16→13:57)
[2021-12-18 10:55] LABS: ALT 26 U/L (4-34); AST 32 U/L (14-36); African American GFR (CKD) >90 (>60 ml/min/1.73 sqM); Albumin 3.7 g/dL (3.5-5.0); Alkaline Phosphatase 83 U/L (38-126); Anion Gap 11 mmol/L; Blood Urea Nitrogen 5 mg/dL (7-17); Calcium 9.2 mg/dL (8.4-10.2); Carbon Dioxide 19 mmol/L (22-30); Chloride 106 mmol/L (98-107); Glucose 111 mg/dL (74-99); Lipase 20 U/L (23-300); Non-African American GFR(CKD) >90 (>60 ml/min/1.73 sqM); Sodium 136 mmol/L (137-145); Total Bilirubin 1.1 mg/dL (0.2-1.3); Total Protein 6.8 g/dL (6.3-8.2)
[2021-12-18 11:02] LABS: Basophils % (A) 1 %; Eosinophils # (A) 0.1 k/uL (0-0.7); Eosinophils % (A) 2 %; HCT 45.9 % (34.0-46.0); HGB 15.8 gm/dL (11.4-16.0); Lymphocytes # (A) 1.6 k/uL (1.0-4.8); Lymphocytes % (A) 25 %; MCH 31.6 pg (25.0-35.0); MCHC 34.5 g/dL (31.0-37.0); MCV 91.6 fL (80.0-100.0); Mean Platelet Volume 7.5; Monocytes # (A) 0.3 k/uL (0-1.0); Monocytes % (A) 4 %; Neutrophils # (A) 4.2 k/uL (1.3-7.7); Neutrophils % (A) 67 %; Platelet Count 390 k/uL (150-450); RBC 5.01 m/uL (3.80-5.40); RDW 13.1 % (11.5-15.5); WBC 6.3 k/uL (3.8-10.6)
[2021-12-18] MEDS ORDERED: KETOROLAC 15 MG/ML 1 ML VIAL IVP STA (11:04)
--- NOTE | 2021-12-18 12:00 | ED ---
Abdominal Pain HPI - General Chief Complaint: Abdominal Pain Stated Complaint: Kidney stone Time Seen by Provider: 12/18/21 09:58 Source: patient, family, RN notes reviewed Mode of arrival: wheelchair Limitations: no limitations - History of Present Illness Initial Comments: 65-year-old female presents emergency discharge he went left-sided abdominal fla nk pain. Patient states started yesterday was seen at [facility] diagnosed with a kidney stone. Patient states that she did have a CT showing 7 mm stone. Patient states the pain worsened today. Patient denies any fevers or chills patient states her urine is darker than usual. Patient has no history otherwise of kidney stones. Patient denies any chest pain shortness breath head ache dizziness. - Related Data Home Medications Medication Instructions Recorded Confirmed Albuterol Sulfate [Proventil Hfa] 2 puff INHALATION RT-Q4H PRN 10/06/21 10/06/21 Cholecalciferol [Vitamin D3 (25 25 mcg PO DAILY 10/06/21 10/06/21 Mcg = 1000 Iu)] LORazepam [Ativan] 0.5 - 1 mg PO Q6H PRN 10/06/21 10/06/21 Levothyroxine Sodium [Tirosint] 112 mcg PO DAILY 10/06/21 10/06/21 Mometasone Furoate [Asmanex Hfa] 1 puff INHALATION RT-BID PRN 10/06/21 10/06/21 Multivitamins, Thera [Multivitamin 1 tab PO DAILY 10/06/21 10/06/21 (formulary)] Previous Rx's Medication Instructions Recorded Metoprolol Tartrate [Lopressor] 25 mg PO BID #60 tab 10/07/21 HYDROcodone/APAP 5-325MG [[place] 5] 1 each PO Q6HR PRN #12 tab 12/18/21 Ondansetron Odt [Zofran Odt] 4 mg PO Q8HR PRN #10 tab 12/18/21 Tamsulosin [Flomax] 0.4 mg PO DAILY #7 cap 12/18/21 Allergies Allergy/AdvReac Type Severity Reaction Status Date / Time aspirin Allergy Abdominal Verified 12/18/21 09:51 Pain,VOMITING clarithromycin [From Biaxin] Allergy Unknown Verified 12/18/21 09:51 codeine Allergy Nausea & Verified 12/18/21 09:51 Vomiting doxycycline Allergy Nausea Verified 12/18/21 09:51 latex Allergy Rash/Hives, Verified 12/18/21 09:51 SWELLING levofloxacin [From Levaquin] Allergy Hallucinati Verified 12/18/21 09:51 ons Penicillins Allergy Rash/Hives Verified 12/18/21 09:51 Sulfa (Sulfonamide Allergy Rash/Hives Verified 12/18/21 09:51 Antibiotics) cephalexin monohydrate AdvReac Abdominal Verified 12/18/21 09:51 [From Keflex] Pain Review of Systems ROS Statement: Those systems with pertinent positive or pertinent negative responses have been documented in the HPI. ROS Other: All systems not noted in ROS Statement are negative. Past Medical History Past Medical History: Asthma Additional Past Medical History / Comment(s): "PRE DIABETIC-INSULIN RESISTANT" History of Any Multi-Drug Resistant Organisms: None Reported Past Surgical History: Breast Surgery, Section, Cholecystectomy, Hysterectomy, Tonsillectomy, Uterine Ablation Additional Past Surgical History / Comment(s): VARICOSE VEIN-RIGHT LEG,BLADDER SUSPENSION Past Anesthesia/Blood Transfusion Reactions: Motion Sickness, Postoperative Na usea & Vomiting (PONV) Past Psychological History: No Psychological Hx Reported Smoking Status: Former smoker Past Alcohol Use History: None Reported Past Drug Use History: None Reported - Past Family History Sister(s) Family Medical History: Cancer Mother Family Medical History: Deep Vein Thrombosis (DVT) General Exam Limitations: no limitations General appearance: alert, in no apparent distress Head exam: Present: atraumatic, normocephalic, normal inspection Eye exam: Present: normal appearance, PERRL, EOMI. Absent: scleral icterus, conjunctival injection, periorbital swelling Neck exam: Present: normal inspection, full ROM. Absent: tenderness, meningismus, lymphadenopathy Respiratory exam: Present: normal lung sounds bilaterally. Absent: respiratory distress, wheezes, rales, rhonchi, stridor Cardiovascular Exam: Present: regular rate, normal rhythm, normal heart sounds. Absent: systolic murmur, diastolic murmur, rubs, gallop, clicks GI/Abdominal exam: Present: soft, normal bowel sounds. Absent: distended, tenderness, guarding, rebound, rigid Back exam: Present: CVA tenderness (L). Absent: CVA tenderness (R) Neurological exam: Present: alert Skin exam: Present: warm, dry, intact, normal color. Absent: rash Course Vital Signs 12/18/21 09:45 Temperature 97.6 F Pulse Rate 94 Respiratory 18 Rate Blood Pressure 130/88 O2 Sat by Pulse 99 Oximetry Medical Decision Making - Medical Decision Making 65-year-old female presents emergency Department with chief complaint of flank pain. Patient does have 7 mm UPJ stone on the left. Patient's pain is controllable be discharged to outpatient follow-up urology patient understands agrees to plan. - Lab Data Result diagrams: 12/18/21 10:12/18/21 10: Lab Results 12/18/21 12/18/21 12/18/21 Range/Units 10: 10: 12:11 WBC 6.3 (3.8-10.6) k/uL RBC 5.01 (3.80-5.40) m/uL Hgb 15.8 (11.4-16.0) gm/dL Hct 45.9 (34.0-46.0) % MCV 91.6 (80.0-100.0) fL MCH 31.6 (25.0-35.0) pg MCHC 34.5 (31.0-37.0) g/dL RDW 13.1 (11.5-15.5) % Plt Count 390 (150-450) k/uL MPV 7.5 Neutrophils % 67 % Lymphocytes % 25 % Monocytes % 4 % Eosinophils % 2 % Basophils % 1 % Neutrophils # 4.2 (1.3-7.7) k/uL Lymphocytes # 1.6 (1.0-4.8) k/uL Monocytes # 0.3 (0-1.0) k/uL Eosinophils # 0.1 (0-0.7) k/uL Basophils # 0.0 (0-0.2) k/uL Sodium 136 L (137-145) mmol/L Potassium 4.0 (3.5-5.1) mmol/L Chloride 106 (98-107) mmol/L Carbon Dioxide 19 L (22-30) mmol/L Anion Gap 11 mmol/L BUN 5 L (7-17) mg/dL Creatinine 0.66 (0.52-1.04) mg/dL Est GFR (CKD-EPI)AfAm >90 (>60 ml/min/1.73 sqM) Est GFR (CKD-EPI)NonAf >90 (>60 ml/min/1.73 sqM) Glucose 111 H (74-99) mg/dL Calcium 9.2 (8.4-10.2) mg/dL Total Bilirubin 1.1 (0.2-1.3) mg/dL AST 32 (14-36) U/L ALT 26 (4-34) U/L Alkaline Phosphatase 83 (38-126) U/L Total Protein 6.8 (6.3-8.2) g/dL Albumin 3.7 (3.5-5.0) g/dL Lipase 20 L (23-300) U/L Urine Color Light Yellow Urine Appearance Clear (Clear) Urine pH 7.0 (5.0-8.0) Ur Specific [place] 1.005 (1.001-1.035) Urine Protein Negative (Negative) Urine Glucose (UA) Negative (Negative) Urine Ketones 1+ H (Negative) Urine Blood Moderate H (Negative) Urine Nitrite Negative (Negative) Urine Bilirubin Negative (Negative) Urine Urobilinogen <2.0 (<2.0) mg/dL Ur Leukocyte Esterase Negative (Negative) Urine RBC 1 (0-5) /hpf Urine WBC 1 (0-5) /hpf Urine Mucus Rare H (None) /hpf Disposition Clinical Impression: Kidney stone on left side Disposition: HOME SELF-CARE Condition: Stable Instructions (If sedation given, give patient instructions): Kidney Stones (ED) Additional Instructions: Please return to the Emergency Department if symptoms worsen or any other concerns. Prescriptions: Tamsulosin [Flomax] 0.4 mg PO DAILY #7 cap HYDROcodone/APAP 5-325MG [[place] 5] 1 each PO Q6HR PRN #12 tab PRN Reason: Pain Ondansetron Odt [Zofran Odt] 4 mg PO Q8HR PRN #10 tab PRN Reason: Nausea Is patient prescribed a controlled substance at d/c from ED?: Yes When asked, does pt state using other controlled substances?: No If prescribed controlled substance>3 days was MAPS reviewed?: Prescribed <3 Days If opioid is for acute pain is fill amount 7 days or less?: Yes If Rx opioid, was Start Talking consent form obtained?: Yes Referrals: Linda Valera MD [Primary Care Provider] - 1-2 days Time of Disposition: 13:48
[2021-12-18 12:39] LABS: Appearance,Urine Clear (Clear); Bilirubin,Urine Negative (Negative); Blood,Urine Moderate (Negative); Color,Urine Light Yellow; Glucose,Urine (UA) Negative (Negative); Ketones,Urine 1+ (Negative); Leukocyte Esterase,Urine Negative (Negative); Mucus,Urine Rare /hpf; Nitrite,Urine Negative (Negative); Protein,Urine Negative (Negative); RBC,Urine 1 /hpf (0-5); Specific Gravity,Urine 1.005 (1.001-1.035); Urobilinogen,Urine <2.0 mg/dL (<2.0); WBC,Urine 1 /hpf (0-5)
--- NOTE | 2021-12-18 14:34 | XR ---
EXAMINATION TYPE: XR KUB DATE OF EXAM: 12/18/2021 2:28 PM CLINICAL HISTORY: History of kidney stone with left-sided pain. TECHNIQUE: Two Upright KUB images of the abdomen are obtained. COMPARISON: CT abdomen and pelvis March 17, 2016. FINDINGS: Scattered gas is seen in non-distended small bowel loops. Gas and fecal material is seen in non-distended colon. There is suspected new 8 mm proximal left ureter calculus at the L3-L4 disc spa ce. Left lung base laterally shows patchy atelectasis and/or developing infiltrate. No free air. Osse ous structures are intact. IMPRESSION: Suspect 8mm proximal left ureter calculus. Developing patchy lateral left basilar acute i nfiltrate and/or atelectasis noted. Correlate clinically.
[2021-12-18] MEDS ORDERED: NALOXONE 0.4 MG/ML 1 ML VIAL IV PRN (15:31)
[2021-12-18] MEDS ORDERED: HYDROcodone/APAP 5-325MG 1 EACH TAB PO PRN (15:31)
--- NOTE | 2021-12-18 15:31 | ED ---
Medical Decision Making - Medical Decision Making Condition did receive multiple doses of pain medication. Patient was plan to be discharged though repeated of episode of emesis, repeat of increasing pain 1 tolerate. I discussed the case with on-call urology Dr. Kemp who recommends patient be admitted for possible simple for lithotripsy. Patient will be continued on IV fluids, pain control, antiemetics will remain nothing by mouth until urology evaluation. - Lab Data Result diagrams: 12/18/21 10:12/18/21 10: Lab Results 12/18/21 12/18/21 12/18/21 Range/Units 10: 10: 12:11 WBC 6.3 (3.8-10.6) k/uL RBC 5.01 (3.80-5.40) m/uL Hgb 15.8 (11.4-16.0) gm/dL Hct 45.9 (34.0-46.0) % MCV 91.6 (80.0-100.0) fL MCH 31.6 (25.0-35.0) pg MCHC 34.5 (31.0-37.0) g/dL RDW 13.1 (11.5-15.5) % Plt Count 390 (150-450) k/uL MPV 7.5 Neutrophils % 67 % Lymphocytes % 25 % Monocytes % 4 % Eosinophils % 2 % Basophils % 1 % Neutrophils # 4.2 (1.3-7.7) k/uL Lymphocytes # 1.6 (1.0-4.8) k/uL Monocytes # 0.3 (0-1.0) k/uL Eosinophils # 0.1 (0-0.7) k/uL Basophils # 0.0 (0-0.2) k/uL Sodium 136 L (137-145) mmol/L Potassium 4.0 (3.5-5.1) mmol/L Chloride 106 (98-107) mmol/L Carbon Dioxide 19 L (22-30) mmol/L Anion Gap 11 mmol/L BUN 5 L (7-17) mg/dL Creatinine 0.66 (0.52-1.04) mg/dL Est GFR (CKD-EPI)AfAm >90 (>60 ml/min/1.73 sqM) Est GFR (CKD-EPI)NonAf >90 (>60 ml/min/1.73 sqM) Glucose 111 H (74-99) mg/dL Calcium 9.2 (8.4-10.2) mg/dL Total Bilirubin 1.1 (0.2-1.3) mg/dL AST 32 (14-36) U/L ALT 26 (4-34) U/L Alkaline Phosphatase 83 (38-126) U/L Total Protein 6.8 (6.3-8.2) g/dL Albumin 3.7 (3.5-5.0) g/dL Lipase 20 L (23-300) U/L Urine Color Light Yellow Urine Appearance Clear (Clear) Urine pH 7.0 (5.0-8.0) Ur Specific [place] 1.005 (1.001-1.035) Urine Protein Negative (Negative) Urine Glucose (UA) Negative (Negative) Urine Ketones 1+ H (Negative) Urine Blood Moderate H (Negative) Urine Nitrite Negative (Negative) Urine Bilirubin Negative (Negative) Urine Urobilinogen <2.0 (<2.0) mg/dL Ur Leukocyte Esterase Negative (Negative) Urine RBC 1 (0-5) /hpf Urine WBC 1 (0-5) /hpf Urine Mucus Rare H (None) /hpf Disposition Clinical Impression: Kidney stone on left side Disposition: ADMITTED IP TO [facility] Condition: Stable Instructions (If sedation given, give patient instructions): Kidney Stones (ED) Additional Instructions: Please return to the Emergency Department if symptoms worsen or any other concerns. Prescriptions: Tamsulosin [Flomax] 0.4 mg PO DAILY #7 cap HYDROcodone/APAP 5-325MG [[place] 5] 1 each PO Q6HR PRN #12 tab PRN Reason: Pain Ondansetron Odt [Zofran Odt] 4 mg PO Q8HR PRN #10 tab PRN Reason: Nausea Referrals: Linda Valera MD [Primary Care Provider] - 1-2 days
[2021-12-18] MEDS ORDERED: SODIUM CHLORIDE 0.9% 1,000 ML IV SCH (15:45)
[2021-12-18] MEDS: SODIUM CHLORIDE 0.9% 1,000 ML IV SCH (15:56)
[2021-12-18] MEDS: KETOROLAC 30 MG/ML 1 ML VIAL IVP PRN ×2 (15:57→22:58)
[2021-12-18] MEDS: TAMSULOSIN 0.4 MG CAP.ER.24H PO SCH (15:58)
--- NOTE | 2021-12-18 16:12 | P.HPIM ---
History of Present Illness H&P Date: 12/18/21 Chief Complaint: Left flank pain Patient is a 65-year-old female with a past Nikiel history significant for asthma, hepatitis Jaylin presents the hospital secondary to left flank pain. Patient currently rates pain a 9 out of 10 associated with intractable nausea and vomiting. Pain does not radiate anywhere however she does deny any dysuria, urgency or frequency. Patient also denies previous episodes or history of kidney stones in the past. Vital signs are reviewed patient is afebrile normotensive saturating 96% on room air. CBC did not show any leukocytosis BMP is unremarkable creatinine 0.66 and urinalysis negative for UTI. Past Medical History Past Medical History: Asthma Additional Past Medical History / Comment(s): "PRE DIABETIC-INSULIN RESISTANT" History of Any Multi-Drug Resistant Organisms: None Reported Past Surgical History: Breast Surgery, Section, Cholecystectomy, Hysterectomy, Tonsillectomy, Uterine Ablation Additional Past Surgical History / Comment(s): VARICOSE VEIN-RIGHT LEG,BLADDER SUSPENSION Past Anesthesia/Blood Transfusion Reactions: Motion Sickness, Postoperative Nausea & Vomiting (PONV) Past Psychological History: No Psychological Hx Reported Smoking Status: Former smoker Past Alcohol Use History: None Reported Past Drug Use History: None Reported - Past Family History Sister(s) Family Medical History: Cancer Mother Family Medical History: Deep Vein Thrombosis (DVT) Medications and Allergies Home Medications Medication Instructions Recorded Confirmed Type LORazepam [Ativan] 0.5 - 1 mg PO Q6H PRN 10/06/21 12/18/21 History Levothyroxine Sodium [Tirosint] 112 mcg PO DAILY 10/06/21 12/18/21 History Mometasone Furoate [Asmanex Hfa] 1 puff INHALATION RT-BID PRN 10/06/21 12/18/21 History HYDROcodone/APAP 5-325MG [[place] 5] 1 each PO Q6HR PRN #12 tab 12/18/21 Rx Ondansetron Odt [Zofran Odt] 4 mg PO Q8HR PRN #10 tab 12/18/21 Rx Tamsulosin [Flomax] 0.4 mg PO DAILY #7 cap 12/18/21 Rx Allergies Allergy/AdvReac Type Severity Reaction Status Date / Time aspirin Allergy Abdominal Verified 12/18/21 14:59 Pain,VOMITING clarithromycin [From Biaxin] Allergy Unknown Verified 12/18/21 14:59 codeine Allergy Nausea & Verified 12/18/21 14:59 Vomiting doxycycline Allergy Nausea Verified 12/18/21 14:59 latex Allergy Rash/Hives, Verified 12/18/21 14:59 SWELLING levofloxacin [From Levaquin] Allergy Hallucinati Verified 12/18/21 14:59 ons Penicillins Allergy Rash/Hives Verified 12/18/21 14:59 Sulfa (Sulfonamide Allergy Rash/Hives Verified 12/18/21 14:59 Antibiotics) cephalexin monohydrate AdvReac Abdominal Verified 12/18/21 14:59 [From Keflex] Pain Physical Exam Vitals: Vital Signs Temp Pulse Resp BP Pulse Ox 12/18/21 14:12 95 18 156/75 96 12/18/21 09:45 97.6 F 94 18 130/88 99 Intake and Output 12/18/21 12/18/21 12/18/21 06:59 14:59 22:59 Other: Weight 81.647 kg Gen. patient is in acute distress/pain Cardio normal S1/S2 Respiratory normal aeration bilaterally, no wheezing or rhonchi appreciated Abdomen soft, nontender, left flank pain noted Extremities no pitting edema Neuro awake alert oriented 3. Results CBC & Chem 7: 12/18/21 10:23 12/18/21 10:23 Labs: Abnormal Lab Results - Last 24 Hours (Table) 12/18/21 12/18/21 12/18/21 Range/Units 10:23 12:11 15:45 Sodium 136 L (137-145) mmol/L Carbon Dioxide 19 L (22-30) mmol/L BUN 5 L (7-17) mg/dL Glucose 111 H (74-99) mg/dL Lipase 20 L (23-300) U/L Urine Ketones 1+ H (Negative) Urine Blood Moderate H (Negative) Urine Mucus Rare H (None) /hpf Coronavirus (PCR) Detected A (Not Detectd) Assessment and Plan Plan: Assessment: #1 intractable left flank pain secondary to nephrolithiasis #2 hypothyroidism #3 history of asthma not in acute exacerbation Plan: -Admitted to medicine for close monitoring -Aspiration/fall precaution -No indication for IV antibiotics continue with IV fluids 100 mL an hour -Agree with IV Toradol which is helping the patient's pain when necessary and Dilaudid for severe pain -Urology consult at planning for possible lithotripsy -Due to prophylaxis Lovenox
[2021-12-18] MEDS: ONDANSETRON 4 MG/2 ML VIAL IVP PRN (20:23)
[2021-12-18] MEDS: HYDROmorphone 1 MG/ML 1 ML SYRINGE IVP PRN ×2 (20:23→22:56)
[2021-12-19] MEDS: HYDROmorphone 1 MG/ML 1 ML SYRINGE IVP PRN ×3 (01:54→11:01)
[2021-12-19] MEDS: SODIUM CHLORIDE 0.9% 1,000 ML IV SCH ×2 (01:58→14:12)
[2021-12-19] MEDS: LEVOTHYROXINE 112 MCG TAB PO SCH (01:58)
[2021-12-19] MEDS: ONDANSETRON 4 MG/2 ML VIAL IVP PRN ×2 (07:29→14:36)
[2021-12-19] MEDS: TAMSULOSIN 0.4 MG CAP.ER.24H PO SCH (07:30)
--- NOTE | 2021-12-19 07:54 | P.GSCN ---
History of Present Illness Consult date: 12/19/21 History of present illness: 65 yo female with a 3 day history of left flank pain due to a 7 mm proximal ureteral stone. SHe was first seen a [facility] where it was identified. Her pain was controlled only to return to [facility] er yesterday with pain again. SHe was admitted and I was consulted. this is her first stone. SHe has no signs of infection. SHe is still having pain and nausea, There are no other issue related to the stone. Review of Systems All systems: negative - Constitutional Denies fever, Denies weight loss - EENT Eyes: denies blurred vision Ears, nose, mouth and throat: Denies dysphagia - Cardiovascular Denies chest pain, Denies shortness of breath - Respiratory Denies cough, Denies 7 - Gastrointestinal Reports as per HPI - Genitourinary Genitourinary: Denies dysuria, Denies hematuria - Integumentary Denies rash, Denies unusual bruising - Neurological Denies headaches, Denies syncope - Hematologic/Lymphatic Denies easy bleeding, Denies easy bruising Past Medical History Past Medical History: Asthma, Thyroid Disorder Additional Past Medical History / Comment(s): "PRE DIABETIC-INSULIN RESISTANT" History of Any Multi-Drug Resistant Organisms: None Reported Past Surgical History: Breast Surgery, Section, Cholecystectomy, Hysterectomy, Tonsillectomy, Uterine Ablation Additional Past Surgical History / Comment(s): VARICOSE VEIN-RIGHT LEG,BLADDER SUSPENSION Past Anesthesia/Blood Transfusion Reactions: No Reported Reaction, Motion Sickness, Postoperative Nausea & Vomiting (PONV) Past Psychological History: No Psychological Hx Reported Smoking Status: Never smoker Past Alcohol Use History: None Reported Past Drug Use History: None Reported - Past Family History Sister(s) Family Medical History: Cancer Mother Family Medical History: Deep Vein Thrombosis (DVT) Medications and Allergies Home Medications Medication Instructions Recorded Confirmed Type LORazepam [Ativan] 0.5 - 1 mg PO Q6H PRN 10/06/21 12/18/21 History Levothyroxine Sodium [Tirosint] 112 mcg PO DAILY 10/06/21 12/18/21 History Mometasone Furoate [Asmanex Hfa] 1 puff INHALATION RT-BID PRN 10/06/21 12/18/21 History HYDROcodone/APAP 5-325MG [[place] 5] 1 each PO Q6HR PRN #12 tab 12/18/21 Rx Ondansetron Odt [Zofran Odt] 4 mg PO Q8HR PRN #10 tab 12/18/21 Rx Tamsulosin [Flomax] 0.4 mg PO DAILY #7 cap 12/18/21 Rx Allergies Allergy/AdvReac Type Severity Reaction Status Date / Time aspirin Allergy Abdominal Verified 12/18/21 14:59 Pain,VOMITING clarithromycin [From Biaxin] Allergy Unknown Verified 12/18/21 14:59 codeine Allergy Nausea & Verified 12/18/21 14:59 Vomiting doxycycline Allergy Nausea Verified 12/18/21 14:59 latex Allergy Rash/Hives, Verified 12/18/21 14:59 SWELLING levofloxacin [From Levaquin] Allergy Hallucinati Verified 12/18/21 14:59 ons Penicillins Allergy Rash/Hives Verified 12/18/21 14:59 Sulfa (Sulfonamide Allergy Rash/Hives Verified 12/18/21 14:59 Antibiotics) cephalexin monohydrate AdvReac Abdominal Verified 12/18/21 14:59 [From Keflex] Pain Surgical - Exam Vital Signs Temp Pulse Resp BP Pulse Ox 97.6 F 94 18 130/88 99 12/18/21 09:45 12/18/21 09:45 12/18/21 09:45 12/18/21 09:45 12/18/21 09:45 - General well developed, well nourished, moderate distress - Eyes PERRL - ENT no hearing loss - Neck trachea midline - Respiratory normal expansion, normal respiratory effort - Cardiovascular Rhythm: regular - Abdomen Abdomen: soft, tender - Neurologic normal sensation - Musculoskeletal normal posture - Psychiatric oriented to time, oriented to person, oriented to place, speech is normal, memory intact Results - Labs 12/18/21 10:23 12/18/21 10:23 Abnormal Lab Results - Last 24 Hours (Table) 12/18/21 12/18/21 12/18/21 Range/Units 10:23 12:11 15:45 Sodium 136 L (137-145) mmol/L Carbon Dioxide 19 L (22-30) mmol/L BUN 5 L (7-17) mg/dL Glucose 111 H (74-99) mg/dL Lipase 20 L (23-300) U/L Urine Ketones 1+ H (Negative) Urine Blood Moderate H (Negative) Urine Mucus Rare H (None) /hpf Coronavirus (PCR) Detected A (Not Detectd) Diabetes panel 12/18/21 Range/Units 10:23 Sodium 136 L (137-145) mmol/L Potassium 4.0 (3.5-5.1) mmol/L Chloride 106 (98-107) mmol/L Carbon Dioxide 19 L (22-30) mmol/L BUN 5 L (7-17) mg/dL Creatinine 0.66 (0.52-1.04) mg/dL Glucose 111 H (74-99) mg/dL Calcium 9.2 (8.4-10.2) mg/dL AST 32 (14-36) U/L ALT 26 (4-34) U/L Alkaline Phosphatase 83 (38-126) U/L Total Protein 6.8 (6.3-8.2) g/dL Albumin 3.7 (3.5-5.0) g/dL Calcium panel 12/18/21 Range/Units 10:23 Calcium 9.2 (8.4-10.2) mg/dL Albumin 3.7 (3.5-5.0) g/dL Pituitary panel 12/18/21 Range/Units 10:23 Sodium 136 L (137-145) mmol/L Potassium 4.0 (3.5-5.1) mmol/L Chloride 106 (98-107) mmol/L Carbon Dioxide 19 L (22-30) mmol/L BUN 5 L (7-17) mg/dL Creatinine 0.66 (0.52-1.04) mg/dL Glucose 111 H (74-99) mg/dL Calcium 9.2 (8.4-10.2) mg/dL Adrenal panel 12/18/21 Range/Units 10:23 Sodium 136 L (137-145) mmol/L Potassium 4.0 (3.5-5.1) mmol/L Chloride 106 (98-107) mmol/L Carbon Dioxide 19 L (22-30) mmol/L BUN 5 L (7-17) mg/dL Creatinine 0.66 (0.52-1.04) mg/dL Glucose 111 H (74-99) mg/dL Calcium 9.2 (8.4-10.2) mg/dL Total Bilirubin 1.1 (0.2-1.3) mg/dL AST 32 (14-36) U/L ALT 26 (4-34) U/L Alkaline Phosphatase 83 (38-126) U/L Total Protein 6.8 (6.3-8.2) g/dL Albumin 3.7 (3.5-5.0) g/dL - Imaging Abdominal x-ray: report reviewed, image reviewed CT scan - abdomen: report reviewed, image reviewed CT scan - pelvis: report reviewed, image reviewed Assessment and Plan Assessment: Impression: left ureteral calculus, 7mm, proximal ureter with persistent colic. Plan: left ureteroscopy with laser lithotripsy and probable stent placement today.
[2021-12-19 09:22] LABS: Basophils # (A) 0.02 X 10*3/uL (0.00-0.10); Basophils % (A) 0.2 %; Eosinophils # (A) 0.11 X 10*3/uL (0.04-0.35); Eosinophils % (A) 1.3 %; HCT 38.3 % (37.2-46.3); Immature Grans, Automated 0.7 %; Lymphocytes # (A) 2.31 X 10*3/uL (0.90-5.00); MCH 30.9 pg (27.0-32.0); MCHC 33.9 g/dL (32.0-37.0); Mean Platelet Volume 9.4 fL (9.5-12.2); Monocytes # (A) 0.79 X 10*3/uL (0.20-1.00); Monocytes % (A) 9.2 %; NRBC Per 100 WBC 0 /100 WBCS (0.0-0.0); Neutrophils # (A) 5.26 X 10*3/uL (1.80-7.70); Neutrophils % (A) 61.6 %; Platelet Count 341 X 10*3/uL (140-440); RBC 4.21 X 10*6/uL (4.10-5.20); WBC 8.55 X 10*3/uL (4.50-10.00)
[2021-12-19 09:45] LABS: African American GFR (CKD) 68.9 (60.0-200.0); Anion Gap 11.5 mmol/L (10.00-18.00); BUN/Creat Ratio 5.9 Ratio (12.00-20.00); Blood Urea Nitrogen 5.9 mg/dL (9.0-27.0); Calcium 7.9 mg/dL (8.7-10.3); Carbon Dioxide 21.5 mmol/L (20.0-27.5); Non-African American GFR(CKD) 59.5 (60.0-200.0); Potassium 3.8 mmol/L (3.5-5.5)
[2021-12-19] MEDS ORDERED: MIDAZOLAM 2 MG/2 ML VIAL ONE (11:41)
[2021-12-19] MEDS ORDERED: fentaNYL (PF) 50 MCG/ML 2 ML AMP ONE (11:41)
[2021-12-19] MEDS ORDERED: PROPOFOL 10 MG/ML 20 ML VIAL IV ONE (11:41)
[2021-12-19] MEDS ORDERED: SUCCINYLCHOLINE CHLORIDE 100 MG/5 ML SYR IV ONE (11:41)
[2021-12-19] MEDS ORDERED: ONDANSETRON 4 MG/2 ML VIAL ONE (11:41)
[2021-12-19] MEDS ORDERED: LIDOCAINE 1% INJ 10MG/ML (20 ML MDV) ONE (11:41)
[2021-12-19] MEDS ORDERED: DEXAMETHASONE SOD PHOSPHATE 10 MG/ML 1 ML VIAL ONE (11:41)
[2021-12-19] MEDS ORDERED: IV FLUID CONTINUATION 1,000 ML IV ONE (11:41)
[2021-12-19] MEDS ORDERED: SODIUM CHLORIDE 0.9% 100 ML with ceFAZolin 2,000 MG IV ONE ×2 (11:54)
[2021-12-19] MEDS ORDERED: IOPAMIDOL-370 50ML BTL MISCELLANE ONE (12:08)
[2021-12-19] MEDS ORDERED: LACTATED RINGERS 1,000 ML IV ONE (12:19)
--- NOTE | 2021-12-19 12:44 | P.OP ---
Date of Procedure: 12/19/21 Preoperative Diagnosis: Left ureteral calculus with colic, persistent Postoperative Diagnosis: Same Procedure(s) Performed: Cystoscopy, left ureteroscopy with laser lithotripsy, placement of double-J catheter left 6 x 24 Anesthesia: VERENA Surgeon: Hema Kemp Estimated Blood Loss (ml): 0 Pathology: other (Stone) Condition: stable Disposition: PACU Indications for Procedure: Patient is 65. For the last 72 hours she has had significant ureteral colic due to a 7 mm proximal ureteral stone on the left. She comes for cystoscopy left ureteroscopy laser lithotripsy because the persistent pain Description of Procedure: Patient is brought to the operating suite. Given general anesthesia. She's placed lithotomy position with sterile prep and drape. Cystoscopy Foroblique lens and 21-Fijian sheath identifies a cystocele. The ureteral orifices are n ormal bladder mucosa was unremarkable. A reduce the cystocele by placing a sponge in the vagina. The left ureteral orifice has to be dilated with the dilating balloon from 5-15-Fijian. An 035 wire previously been placed up the ureter and IV obstructing stone. I passed the semirigid uteroscope up the left ureter to the ureteral stone. With the 400 laser probe the stone was broken into tiny pieces and basketed. Then of the procedure there is no remaining significant stone. I removed the ureteroscope. Over the wires passed a 6 x 24 double-J catheter that remained in the kidney and the bladder. The bladder fragment of the stone fragments are drained out of the bladder. The bladder strain the patient's awake and will be discharged home upon recovery. She'll follow-up in the office in one week for cystoscopy and left ureteral catheter removal. Her condition is good.
--- NOTE | 2021-12-19 12:57 | FL ---
EXAMINATION TYPE: FL guidance operating room DATE OF EXAM: 12/19/2021 HISTORY: Fluoroscopy time 1 minute and 1 seconds of fluoroscopy provided. IMPRESSION: 1. Fluoroscopy time.
--- NOTE | 2021-12-19 16:00 | P.PN ---
Subjective Patient was examined at bedside today not complaining of any worsening symptomatology. She did receive the procedure with urology. She is slightly nauseous complaining of mild chest discomfort which is reproducible in nature and atypical in description. Currently she is chest pain-free and denies any radiation to the left arm or to the jaw. Objective - Vital Signs Vital signs: Vital Signs Temp 97.9 F 12/19/21 07:00 Pulse 75 12/19/21 07:00 Resp 16 12/19/21 14:00 BP 125/72 12/19/21 07:00 Pulse Ox 97 12/19/21 07:00 Intake & Output 12/18/21 12/19/21 12/19/21 18:59 06:59 18:59 Intake Total 800 600 Output Total 0 Balance 800 600 Weight 81.647 kg 81.647 kg Intake: IV 600 Intake, IV Titration 800 Amount Sodium Chloride 0.9% 1, 800 000 ml @ 100 mls/hr IV . Q10H JOSE Rx#:[id number] Output: Estimated Blood Loss 0 Other: Voiding Method Toilet # Voids 1 - Exam Gen. patient is in acute distress/pain Cardio normal S1/S2 Respiratory normal aeration bilaterally, no wheezing or rhonchi appreciated Abdomen soft, nontender, left flank pain noted - improved compared to yday Extremities no pitting edema Neuro awake alert oriented 3. - Labs CBC & Chem 7: 12/19/21 05:19 12/19/21 05:19 Labs: Abnormal Lab Results - Last 24 Hours (Table) 12/19/21 12/19/21 Range/Units 05:19 05:19 MPV 9.4 L (9.5-12.2) fL Immature Gran # 0.06 H (0.00-0.04) X 10*3/uL BUN 5.9 L (9.0-27.0) mg/dL Est GFR (CKD-EPI)NonAf 59.5 L (60.0-200.0) BUN/Creatinine Ratio 5.90 L (12.00-20.00) Ratio Calcium 7.9 L (8.7-10.3) mg/dL Assessment and Plan Plan: Assessment: #1 intractable left flank pain secondary to nephrolithiasis #2 hypothyroidism #3 history of asthma not in acute exacerbation Plan: -Admitted to medicine for close monitoring -Aspiration/fall precaution -She underwent lithotripsy and stent placement with urology. No indication for antibiotics as per their service. Patient can be discharged from their perspective. -Discharge currently being held given intractable nausea and vomiting. -Agree with IV Toradol which is helping the patient's pain when necessary and Dilaudid for severe pain -Due to prophylaxis Lovenox
[2021-12-19] MEDS: LORazepam 1 MG TAB PO PRN (21:35)
[2021-12-20] MEDS: SODIUM CHLORIDE 0.9% 1,000 ML IV SCH (00:37)
[2021-12-20] MEDS: KETOROLAC 30 MG/ML 1 ML VIAL IVP PRN (02:08)
[2021-12-20] MEDS: LEVOTHYROXINE 112 MCG TAB PO SCH (05:30)
[2021-12-20] MEDS: TAMSULOSIN 0.4 MG CAP.ER.24H PO SCH (08:12)
[2021-12-20] MEDS: LORazepam 1 MG TAB PO PRN (08:13)
[2021-12-20] MEDS ORDERED: ENOXAPARIN 40 MG/0.4 ML SYRINGE SQ SCH (09:00)
--- NOTE | 2021-12-20 09:37 | P.DS ---
Providers Date of admission: 12/18/21 16:24 Attending physician: Boy Batista MD Consults: 12/18/21 15:33 Consult Physician Urgent Consulting Provider: Hema Kemp Consult Reason/Comments: kidney stone Do you want consulting provider notified?: Yes Primary care physician: Linda Valera MD Hospital Course: Patient is a 65-year-old female with a past Nikiel history significant for asthma, hepatitis Jaylin presents the hospital secondary to left flank pain. Patient currently rates pain a 9 out of 10 associated with intractable nausea and vomiting. Pain does not radiate anywhere however she does deny any dysuria, urgency or frequency. Patient also denies previous episodes or history of kidney stones in the past. Vital signs are reviewed patient is afebrile normotensive saturating 96% on room air. CBC did not show any leukocytosis BMP is unremarkable creatinine 0.66 and urinalysis negative for UTI. Patient is okay to be discharged from urologist perspective. Discharge was held yesterday due to intractable nausea and vomiting. Overnight she is comfortable not complaining of any active symptoms including worsening abdominal discomfort, dysuria or urgency. Yesterday she did have some nonspecific chest discomfort troponin was negative and the patient constipated to muscular skeletal there was also reproducible and atypical in nature. Today I reexamined her and she is not complaining of any chest pain, shortness of breath or palpitations. She also said that her chest pain has resolved and most likely contribution to torture anxiety. She is also to follow-up with her primary care doctor in urology within 1 week of discharge. If she does experience any chest pain she is asked to return back to the emergency department immediately. Patient Condition at Discharge: Stable Plan - Discharge Summary Discharge Rx Participant: Yes New Discharge Prescriptions: New HYDROcodone/APAP 5-325MG [[place] 5] 1 each PO Q6HR PRN #12 tab PRN Reason: Pain Ondansetron Odt [Zofran Odt] 4 mg PO Q8HR PRN #10 tab PRN Reason: Nausea Acetaminophen Tab [Tylenol Tab] 500 mg PO Q8HR PRN 7 Days #7 tablet PRN Reason: Mild Pain Tamsulosin [Flomax] 0.4 mg PO DAILY #7 cap Continue Levothyroxine Sodium [Tirosint] 112 mcg PO DAILY LORazepam [Ativan] 0.5 - 1 mg PO Q6H PRN PRN Reason: Anxiety Mometasone Furoate [Asmanex Hfa] 1 puff INHALATION RT-BID PRN PRN Reason: Shortness Of Breath Discharge Medication List LORazepam [Ativan] 0.5 - 1 mg PO Q6H PRN 10/06/21 [History] Levothyroxine Sodium [Tirosint] 112 mcg PO DAILY 10/06/21 [History] Mometasone Furoate [Asmanex Hfa] 1 puff INHALATION RT-BID PRN 10/06/21 [History] HYDROcodone/APAP 5-325MG [[place] 5] 1 each PO Q6HR PRN #12 tab 12/18/21 [Rx] Ondansetron Odt [Zofran Odt] 4 mg PO Q8HR PRN #10 tab 12/18/21 [Rx] Tamsulosin [Flomax] 0.4 mg PO DAILY #7 cap 12/18/21 [Rx] Acetaminophen Tab [Tylenol Tab] 500 mg PO Q8HR PRN 7 Days #7 tablet 12/20/21 [Rx] Follow up Appointment(s)/Referral(s): Linda Valera MD [Primary Care Provider] - 1-2 days Hema Kemp MD [STAFF PHYSICIAN] - 1 Week Patient Instructions/Handouts: Kidney Stones (ED) Activity/Diet/Wound Care/Special Instructions: Please return to the Emergency Department if symptoms worsen or any other concerns. Discharge Disposition: HOME SELF-CARE
--- NOTE | 2021-12-20 09:48 | P.PN ---
Subjective Progress Note Date: 12/20/21 The patient stayed in the hospital last night after her left ureteroscopy and laser lithotripsy due to nausea and some anxiety. She feels much better this morning. Her vital signs are stable and she is afebrile. She can be discharged home. I will see her in the office in 7-10 days for cystoscopy and stent removal. Postoperative instructions and symptoms have been discussed. Objective - Vital Signs Vital signs: Vital Signs Temp 98.6 F 12/20/21 01:34 Pulse 74 12/20/21 01:34 Resp 18 12/20/21 01:34 BP 116/64 12/20/21 01:34 Pulse Ox 97 12/20/21 01:34 Intake & Output 12/19/21 12/20/21 12/20/21 18:59 06:59 18:59 Intake Total 600 Output Total 0 Balance 600 Weight 81.647 kg Intake: IV 600 Output: Estimated Blood Loss 0 Other: Voiding Method Toilet # Voids 3 - Labs CBC & Chem 7: 12/19/21 05:19 12/19/21 05:19
[2021-12-20 10:00] VITALS: BP 141/82; PULSE 80; RESP 17; TEMP 98.5
== END 2021-12-20 13:26 | disposition home or self-care (01) ==
LOC: EC 09:36 → 1SOBS 16:24 → 6NMEDSUR 20:20 → 4SSUR 12-19 01:45
PROVIDERS: ADMIT Internal Medicine; ATTEND Internal Medicine
DX: N20.2 Calculus of kidney with calculus of ureter (principal); E03.9 Hypothyroidism, unspecified; U07.1 COVID-19; J45.909 Unspecified asthma, uncomplicated; F41.9 Anxiety disorder, unspecified; K59.00 Constipation, unspecified; I83.90 Asymptomatic varicose veins of unspecified lower extremity; K75.9 Inflammatory liver disease, unspecified; N23 Unspecified renal colic; Z88.5 Allergy status to narcotic agent; Z91.09 Other allergy status, other than to drugs and biological substances; Z88.6 Allergy status to analgesic agent; Z88.2 Allergy status to sulfonamides; Z88.0 Allergy status to penicillin; Z88.1 Allergy status to other antibiotic agents; Z79.890 Hormone replacement therapy; Z79.899 Other long term (current) drug therapy; Z90.710 Acquired absence of both cervix and uterus; Z87.891 Personal history of nicotine dependence; Z87.442 Personal history of urinary calculi; Z87.19 Personal history of other diseases of the digestive system; Z90.49 Acquired absence of other specified parts of digestive tract; Z80.9 Family history of malignant neoplasm, unspecified; Z82.49 Family history of ischemic heart disease and other diseases of the circulatory system
CPT/HCPCS: 52356; 96376 ×2; 96361; 96374; 96375; 99285; 36415; 93005; 80053; 80048; 83690; 84484; 85025 ×2; 81001; 82365; 87635; 74018; G0378 ×3; C2625; C1758; C1769; J2250; J1100; J2405 ×2; J0690; J2001; J1650; J3010; J1885 ×3; J1170 ×3; J0330; J2704; Q9967

== ENCOUNTER → 2022-01-13 | Outpatient (CLI) | payer MEDICARE ==
--- NOTE | 2022-01-14 10:55 | MM ---
Reason for exam: screening (asymptomatic). Last mammogram was performed 2 years and 2 months ago. History: Patient is postmenopausal. Benign excisional biopsy of the right breast, 1995. Took estrogen beginning at age 49. Took progesterone beginning at age 49. Physical Findings: A clinical breast exam by your physician is recommended on an annual basis and results should be correlated with mammographic findings. MG 3D Screening Mammo W/Cad Bilateral CC and MLO view(s) were taken. Prior study comparison: November 29, 2019, bilateral MG 3d screening mammo w/cad. August 01, 2019, left breast MG 3d diag mammo w/cad LT. The breast tissue is heterogeneously dense. This may lower the sensitivity of mammography. Stable benign calcifications. ASSESSMENT: Benign, BI-RAD 2 RECOMMENDATION: Routine screening mammogram of both breasts in 1 year.
== END | disposition home or self-care (01) ==
LOC: RADMAMWWP 14:39
PROVIDERS: ATTEND Family Medicine
DX: Z12.31 Encounter for screening mammogram for malignant neoplasm of breast (principal); Z78.0 Asymptomatic menopausal state
CPT/HCPCS: 77063; 77067

== ENCOUNTER → 2023-05-10 | Outpatient (CLI) | payer MEDICARE ==
[2023-05-11 03:47] LABS: Gliadin AB IgA, Deaminated Negative (Negative); Gliadin AB IgA, Unit 2.1 U/mL; Gliadin AB IgG, Deaminated Negative (Negative); Gliadin AB IgG, Unit <0.4 U/mL
== END | disposition home or self-care (01) ==
LOC: LABWHC1 15:44
PROVIDERS: ATTEND Internal Medicine Gastroenterology
DX: K90.0 Celiac disease (principal)
CPT/HCPCS: 36415; 83516

== ENCOUNTER → 2023-05-12 | Outpatient (CLI) | payer MEDICARE ==
--- NOTE | 2023-05-13 07:49 | MM ---
Reason for Exam: Screening (asymptomatic). Last mammogram was performed 1 year(s) and 4 month(s) ago. Patient History: Menarche at age 13. First Full-Term at age 24. Left ovary removed at age 59. Right ovary removed at age 59. Hysterectomy at age 59. Postmenopausal. Estrogen, starting at age 49. Progesterone, starting at age 49. 1996, Benign Excisional Biopsy on the right side. Risk Values: Razia 5 year model risk: 1.8%. NCI Lifetime model risk: 6.4%. Prior Study Comparison: 08/01/2019 Left Diagnostic Mammogram, [facility]. 11/29/2019 Bilateral Screening Mammogram, [facility]. 01/13/2022 Bilateral Screening Mammogram, [facility]. Tissue Density: The breast tissue is heterogeneously dense. This may lower the sensitivity of mammography. Findings: Analyzed By CAD. There is no suspicious group of microcalcifications or new suspicious mass in either breast. Benign-appearing calcifications within both breasts. Chronic nodularity within both breasts. Overall Assessment: Benign, BI-RAD 2 Management: Screening Mammogram of both breasts in 1 year. A clinical breast exam by your physician is recommended on an annual basis and results should be correlated with mammographic findings. Note on Razia scores and lifetime risk: 1. A Razia score greater than 3% is considered moderate risk. If this is the case, consider specialist referral to assess eligibility for a risk reducing agent. If overall lifetime risk for the development of breast cancer is 20% or higher, the patient may qualify for future screening with alternating mammogram and breast MRI. Electronically signed and approved by: Nick Taylor D.O.
== END | disposition home or self-care (01) ==
LOC: RADMAMWWP 11:06
PROVIDERS: ATTEND Family Medicine
DX: Z12.31 Encounter for screening mammogram for malignant neoplasm of breast (principal); Z78.0 Asymptomatic menopausal state
CPT/HCPCS: 77063; 77067

== ENCOUNTER → 2023-06-08 | Day surgery (SDC) | payer MEDICARE ==
[~2023-06-08] MED LIST: LACTATED RINGERS 1,000 ML IV SCH; LIDOCAINE 2% INJ 20 MG/ML (2 ML VIAL) ONE; PROPOFOL 10 MG/ML 20 ML VIAL IV ONE
[2023-06-08 09:46] VITALS: TEMP 98.8
--- NOTE | 2023-06-08 10:37 | P.PCN ---
Date of Procedure: 06/08/23 Procedure(s) Performed: BRIEF HISTORY: Patient is a 67-year-old, pleasant, white female scheduled for an upper endoscopy as a part of evaluation of chronic cough for the last 2 months duration. She was on Pepcid 20 mg twice daily with no help. Also was diagnosed with celiac disease 20 years ago based on serologies but never had an EGD done in the past.. PROCEDURE PERFORMED: Esophagogastroduodenoscopy with biopsy. PREOPERATIVE DIAGNOSIS: Chronic cough and history of celiac disease. IV sedation per anesthesia. PROCEDURE: After informed consent was obtained, the patient was brought into the endoscopy unit. IV sedation was administered by Anesthesia under continuous monitoring. Initially the Olympus GIF-140 video endoscope was inserted into the mouth. Esophagus intubated without any difficulty. It was gradually advanced into the stomach and duodenum and carefully examined. The bulb and the second part of the duodenum appeared normal. Biopsies were done from the duodenum to evaluate for celiac disease. The scope at this time was withdrawn to the stomach, adequately insufflated with air, and upon careful examination, mucosa of the antrum, and mild gastritis and biopsies were done from this area. Mucosa of the body, cardia and the fundus appeared normal. The scope was then withdrawn into the esophagus. Small hiatal hernia noted. The GE junction was located at 39 cm from the incisors. There was one superficial erosion consistent with LA grade a reflux esophagitis. The rest of the esophagus appeared normal. The patient tolerated the procedure well. IMPRESSION: 1. Normal-appearing duodenum status post multiple biopsies to evaluate for celiac disease.. 2. Mild antral gastritis 3. Small hiatal hernia and LA grade B reflux esophagitis. RECOMMENDATIONS: The findings of this examination were discussed with the patient as well as a family. She was advised to with the biopsy results. She will be seen in office in 2-3 weeks..
[2023-06-08 10:59] VITALS: BP 145/71; PULSE 67; RESP 14
== END ==
LOC: ORWHC2ENDO 09:06
PROVIDERS: ATTEND Internal Medicine Gastroenterology
DX: K29.50 Unspecified chronic gastritis without bleeding (principal); K21.00 Gastro-esophageal reflux disease with esophagitis, without bleeding; K90.0 Celiac disease; K44.9 Diaphragmatic hernia without obstruction or gangrene; K29.80 Duodenitis without bleeding; I10 Essential (primary) hypertension; E78.5 Hyperlipidemia, unspecified; E03.9 Hypothyroidism, unspecified; J45.909 Unspecified asthma, uncomplicated; Z88.5 Allergy status to narcotic agent; Z79.899 Other long term (current) drug therapy; Z79.890 Hormone replacement therapy
CPT/HCPCS: 88305; 43239; J2704; J2001

== ENCOUNTER → 2023-07-09 | Outpatient (CLI) | payer MEDICARE ==
--- NOTE | 2023-07-09 15:18 | CT ---
EXAMINATION TYPE: CT abdomen wo con DATE OF EXAM: 07/09/2023 COMPARISON: 03/17/2016 HISTORY: left flank pain CT DLP: 621.7 mGycm Automated exposure control for dose reduction was used. TECHNIQUE: Helical acquisition of images was performed from the lung bases through the top of iliac crest to include entire abdomen. CONTRAST: Performed without Oral Contrast and without IV contrast. FINDINGS: The lung bases are clear. There are surgical absence of the gallbladder and no biliary ductal dilatation. There is no organomegaly involving the solid visceral organs of the upper abdomen. There is a nonobstructing 8 to 9 mm left renal calcification. There is no definite hydronephrosis. Caliber the abdominal aorta is normal is no retroperitoneal adenopathy or hemorrhage. Visualized bowel loops are normal in caliber and there is no dilatation or obstruction. There is no f ree intraperitoneal air or fluid. No inflammatory changes are identified in the mesentery. Visualized osseous structures are intact. IMPRESSION: 1. Nonobstructing 8 to 9 mm left renal calcification without evidence of hydronephrosis. 2. Surgical absence of the gallbladder.
== END | disposition home or self-care (01) ==
LOC: RADCTMAIN 12:39
PROVIDERS: ATTEND Family Medicine
DX: N28.89 Other specified disorders of kidney and ureter (principal); R30.0 Dysuria; Z90.49 Acquired absence of other specified parts of digestive tract
CPT/HCPCS: 74150

== ENCOUNTER → 2024-05-15 | Outpatient (CLI) | payer MEDICARE ==
--- NOTE | 2024-05-18 13:43 | MM ---
Reason for Exam: Screening (asymptomatic). Last screening mammogram was performed 12 month(s) ago. Patient History: Menarche at age 13. First Full-Term at age 24. Left ovary removed at age 59. Right ovary removed at age 59. Hysterectomy at age 59. Postmenopausal. Estrogen, starting at age 49. Progesterone, starting at age 49. 1996, Benign Excisional Biopsy on the right side. Risk Values: Razia 5 year model risk: 1.8%. NCI Lifetime model risk: 6.1%. Prior Study Comparison: 11/29/2019 Bilateral Screening Mammogram, [facility]. 01/13/2022 Bilateral Screening Mammogram, [facility]. 05/12/2023 Bilateral MG 3D screening mammo w/cad, [facility]. Tissue Density: The breasts are heterogeneously dense, which may obscure small masses. Findings: Analyzed By CAD. Right breast: There is no suspicious group of microcalcifications or new suspicious mass. Left breast: There is no suspicious group of microcalcifications or new suspicious mass. Overall Assessment: Negative, BI-RAD 1 Management: Screening Mammogram of both breasts in [address] [facility] will attempt to contact patient to return for supplemental views and ultrasound if indicated. Patient should continue monthly self-breast exams. A clinical breast exam by your physician is recommended on an annual basis. This exam should not preclude additional follow-up of suspicious palpable abnormalities. Note on Razia scores and lifetime risk: 1. A Razia score greater than 3% is considered moderate risk. If this is the case, consider specialist referral to assess eligibility for a risk reducing agent. 2. If overall lifetime risk for the development of breast cancer is 20% or higher, the patient may qualify for future screening with alternating mammogram and breast MRI. Electronically signed and approved by: Linden Palomino DO
== END | disposition home or self-care (01) ==
LOC: RADMAMWWP 12:23
PROVIDERS: ATTEND Family Medicine
DX: Z12.31 Encounter for screening mammogram for malignant neoplasm of breast (principal); Z78.0 Asymptomatic menopausal state
CPT/HCPCS: 77063; 77067

== ENCOUNTER → 2024-08-04 | Outpatient (CLI) | payer MEDICARE ==
--- NOTE | 2024-08-05 01:40 | PE ---
EXAMINATION TYPE: PET CT fusion skull to thigh DATE OF EXAM: 08/04/2024 CLINICAL INDICATION:Female, 68 years old with history of R91.1 SPN; TECHNIQUE: Following the intravenous administration of 12.14 mCi of F-18 FDG, whole body images are performed from the skull base to the midthigh. Images are reviewed on the computer in the coronal, axial, and sagittal planes. Reconstructed rotating images are created on independent workstation and reviewed on the computer. A non-contrast CT is performed in conjunction with the PET scan. Glucose level 100 mg/dL CT DLP: 867.44 mGycm, Automated exposure control for dose reduction was used. COMPARISON: CT 07/09/2023, 10/06/2021, PET/CT None, MRI: None, chest radiograph 07/28/2024 FINDINGS: Mediastinal SUV mean is 2.4. Hepatic parenchyma SUV mean is 3.5. SKULL BASE AND NECK: No suspicious radiotracer activity. CHEST, MEDIASTINUM, AND HILAR REGION: Right apical 1.7 cm solid pulmonary nodule with a maximum SUV of 5.2. Previously 1.2 cm and more grou ndglass appearance on prior CT 2020. Stable pleural-based left lower lobe non-FDG avid 7 mm pulmonary nodule dating back to 2020 and consi dered benign. No FDG avid enlarged mediastinal or hilar lymph nodes. ABDOMEN AND PELVIS: No suspicious radiotracer activity. MUSCULOSKELETAL STRUCTURES: No suspicious radiotracer activity. OTHER CT: Mildly prominent heart. Gallbladder surgically absent. Nonobstructive left lower pole renal 6 mm calculus. Mild atherosclerotic calcification of the aorta and its branches. Scattered distal co lonic diverticulosis. Uterus is surgically absent. Grade 1 anterolisthesis of L4 on L5 and L5 on S1. IMPRESSION: Increasing size of right apical 1.7 cm mildly FDG avid pulmonary nodule. Demonstrates more solid appe arance and increased size from prior CTA chest 2020. Suspicious for primary lung cancer. [facility], , 08/05/2024 1:38 AM
== END | disposition home or self-care (01) ==
LOC: RADPETMAIN 06:55
PROVIDERS: ATTEND Internal Medicine Critical Care Medicine
DX: R91.1 Solitary pulmonary nodule
CPT/HCPCS: 78815

== ENCOUNTER 2024-08-17 11:01 | Day surgery (SDC) | payer MEDICARE ==
[2024-08-16 11:04] VITALS: BMI 37.5
[~2024-08-17 11:01] MED LIST changes: -LIDOCAINE 2% INJ 20 MG/ML (2 ML VIAL) ONE; -PROPOFOL 10 MG/ML 20 ML VIAL IV ONE
[2024-08-17] MEDS: LACTATED RINGERS 1,000 ML IV SCH (12:00)
[2024-08-17] MEDS: SCOPOLAMINE 1 MG/72 HR PATCH TRANSDERM STA (12:02)
[2024-08-17] MEDS: IV FLUID CONTINUATION 1,000 ML IV ONE (12:03)
[2024-08-17] MEDS: DEXAMETHASONE SOD PHOSPHATE 4 MG/ML 1 ML VIAL IVP STA (12:03)
[2024-08-17] MEDS: ONDANSETRON 4 MG/2 ML VIAL IVP STA (12:04)
[2024-08-17 12:09] LABS: Glucose,Whole Blood 104 mg/dL (70-110)
[2024-08-17] MEDS ORDERED: SUCCINYLCHOLINE CHLORIDE 200 MG/10 ML VIAL IV ONE (12:30)
[2024-08-17] MEDS ORDERED: ROCURONIUM 10 MG/ML (5 ML VIAL) IV ONE (12:30)
[2024-08-17] MEDS ORDERED: DEXAMETHASONE SOD PHOSPHATE 4 MG/ML 1 ML VIAL ONE (12:30)
[2024-08-17] MEDS ORDERED: PROPOFOL 10 MG/ML 20 ML VIAL IV ONE (12:30)
[2024-08-17] MEDS ORDERED: MIDAZOLAM 2 MG/2 ML VIAL ONE (12:30)
[2024-08-17] MEDS ORDERED: fentaNYL (PF) 50 MCG/ML 2 ML AMP ONE (12:30)
--- NOTE | 2024-08-17 12:38 | CT ---
EXAMINATION TYPE: CT chest wo con DATE OF EXAM: 08/17/2024 COMPARISON: None HISTORY: Ion Bronch CT DLP: 653 mGycm. Automated Exposure Control for Dose Reduction was Utilized. TECHNIQUE: CT scan of the thorax is performed without IV contrast. FINDINGS: LUNGS: There is an 18 mm x 19 mm spiculated mass in the right upper lobe highly suspicious for neopla sm. There is a 10 mm nodular density in the left lower lobe. There is 1 to 2 mm nodular density in the dumont bpleural parenchymal left upper lobe. There is a 7.8 mm juxtapleural nodule in the lower lobe. There is no airspace consolidation. There is no abnormal interstitial density. Great vessels the chest are normal and there is no definite mediastinal, hilar or axillary adenopathy . There is no pleural effusion or pneumothorax. Limited scanning through the upper abdomen reveals no gross abnormality. No focal osseous lesions are seen. IMPRESSION: 1. 18 x 19 mm spiculated mass in the right upper lobe highly suspicious for neoplasm. 2. Multiple left lung nodules including a 10 mm left lower lobe pulmonary nodule which could represen t a metastatic nodule and follow-up is recommended. [facility], , 08/17/2024 12:36 PM
--- NOTE | 2024-08-17 14:00 | P.PCN ---
Date of Procedure: 08/17/24 Operative Findings: Preoperative Diagnosis: Right upper lobe pulmonary nodule Postoperative Diagnosis: Right upper lobe pulmonary nodule Procedure(s) Performed: Flexible bronchoscopy Robotic-assisted bronchoscopy and addition to radial ultrasound evaluation of the pulmonary nodule Robotic-assisted transbronchial needle aspirate, transbronchial biopsies, transbronchial brushing of the right upper lobe nodule in addition to a bronchioloalveolar lavage Anesthesia: VERENA Surgeon: Javier Gloria Estimated Blood Loss (ml): 0 Pathology: other Condition: stable Disposition: same day Operative Findings: A physical exam was performed. Informed consent was obtained from the patient after explaining all the risks (pneumothorax, life threatening bleeding, infection and adverse effects due to medications), benefits and alternatives to the procedure which the patient appeared to understand and so stated. The patient was connected to the monitoring devices. General anesthesia was induced and the patient was intubated by anesthesia. A final timeout was performed and the procedure confirmed by the attending bronchoscopist. The bronchoscope was inserted and the airway examined. Airway examination was essentially within normal limits. The flexible bronchoscope was removed and the robotic bronchoscope was inserted. Registration was completed. I next guided the robotic bronchoscope using the navigation system into the right upper lobe apical segment. Once in proper position, the bronchoscope was frozen. The radial EBUS probe was placed through the bronchoscope and confirmed abnormal u/s images vs normal lung. A needle was placed through the working channel and under fluoroscopic guidance, we sampled the area twice. We then used a cloud biopsy pattern with ultrasound confirmation for 1 additional passes with the needle. U/S evaluation was then used to reconfirm location. Forceps were next introduced through working channel and extended the appropriate distance and 3 transbronchial biopsies were performed using fluoroscopic guidance. The u/s probe was then reinserted to confirm location. When confirmed this process was repeated for a total of 8-10 transbronchial biopsies. Following that, transbronchial brushing of the right upper lobe pulmonary nodule was done under flouroscopic guidance. 40ml of saline was then instilled into the area of the lesion. A total of 10 cc of bloody aspirate was obtained. The robotic bronchoscope was removed and the airway inspected with a flexible bronchoscope and 10 ml of effluent from the BAL was collected. The aspirate was bloody and ultimately declotted and based on that, the sample was discarded. Flex. bronchoscope was inserted and regular suctioning was done. At the completion of the procedure, no residual secretions or bloody material within the airway. The bronchoscope was removed. The endobronchial ultrasound was inserted. RECOMMENDATIONS: Await pathology and cytology results The referring physician will be alerted to the results when available. The patient was advised to follow up with the referring physician with the biopsy results Patient will be called with results.
[2024-08-17 14:18] VITALS: TEMP 97
[2024-08-17 14:36] VITALS: RESP 16
[2024-08-17] MEDS: LACTATED RINGERS 1,000 ML IV ONE (14:52)
--- NOTE | 2024-08-17 14:56 | XR ---
EXAMINATION TYPE: XR chest 1V DATE OF EXAM: 08/17/2024 COMPARISON: 10/06/2021 HISTORY: 68-year-old female postbronchial biopsy TECHNIQUE: Single frontal view of the chest is obtained. FINDINGS: Heart upper limits of normal in size. Mild interstitial prominence may be due to low lung volumes and crowded vascular markings. No darcie consolidation, pneumothorax, or pleural effusion is s een. IMPRESSION: No appreciable pneumothorax. Mild interstitial prominence may be due to crowded vascular markings from hypoventilatory changes. [facility], , 08/17/2024 2:54 PM
--- NOTE | 2024-08-17 14:59 | FL ---
EXAMINATION TYPE: FL bronchoscopy DATE OF EXAM: 08/17/2024 FLUOROSCOPY Fluoroscopy time of 2 minutes 19 seconds was used during right upper lobe robot navigational endobron chial biopsy. 7 image/s document/s the procedure. DAP [id number] [facility], , 08/17/2024 2:57 PM
[2024-08-17] MEDS: LORazepam 2 MG/ML INJ IV STA (16:37)
[2024-08-17 16:54] VITALS: BP 137/85; PULSE 107
== END 2024-08-17 17:59 | disposition home or self-care (01) ==
LOC: ORWHC2ENDO 11:01
PROVIDERS: ATTEND Internal Medicine Critical Care Medicine
DX: C34.11 Malignant neoplasm of upper lobe, right bronchus or lung (principal); I10 Essential (primary) hypertension; J45.909 Unspecified asthma, uncomplicated; E03.9 Hypothyroidism, unspecified; Z87.442 Personal history of urinary calculi; Z79.51 Long term (current) use of inhaled steroids; Z79.82 Long term (current) use of aspirin; Z79.899 Other long term (current) drug therapy; Z88.0 Allergy status to penicillin; Z91.040 Latex allergy status; Z88.5 Allergy status to narcotic agent; Z88.2 Allergy status to sulfonamides; Z88.1 Allergy status to other antibiotic agents; Z79.890 Hormone replacement therapy
CPT/HCPCS: 87798 ×3; 87496; 87498; 87529; 88108; 88305; 88342; 87502; 87634; 87070; 87205; 87116; 87102; 87206; 87635; 71045; 71250; 31628; 31629; 31623; 31624; J2250; J0330; J2060; J1100; J2405; J3010; J2704; S2900; 87075

== ENCOUNTER → 2024-08-25 | Outpatient (CLI) | payer MEDICARE ==
[2024-08-25 12:19] LABS: Appearance,Urine Clear (Clear); Bilirubin,Urine Negative (Negative); Blood,Urine Large (Negative); Color,Urine Colorless; Glucose,Urine (UA) Negative (Negative); Ketones,Urine Negative (Negative); Leukocyte Esterase,Urine Negative (Negative); Nitrite,Urine Negative (Negative); Protein,Urine Negative (Negative); Specific Gravity,Urine 1.001 (1.001-1.035); Squamous Epithelial Cell,Urine 1 /hpf (0-4); Urobilinogen,Urine <2.0 mg/dL (<2.0); WBC,Urine <1 /hpf (0-5)
[2024-08-25 13:12] LABS: INR 0.9 (<1.2); Partial Thromboplastin Time 23.8 sec (22.0-30.0); Prothrombin Time 10.2 sec (10.0-12.5)
[2024-08-25 15:30] LABS: Carbon Dioxide 22.8 mmol/L (21.6-31.8); Chloride 103 mmol/L (96-109); Glucose 118 mg/dL (70-110); Potassium 4.4 mmol/L (3.5-5.5); Sodium 140 mmol/L (135-145)
[2024-08-25 15:32] LABS: Basophils # (A) 0.05 X 10*3/uL (0.00-0.10); Basophils % (A) 0.6 %; Eosinophils # (A) 0.14 X 10*3/uL (0.04-0.35); Eosinophils % (A) 1.8 %; HCT 44.2 % (37.2-46.3); HGB 14.6 g/dL (12.0-15.0); Lymphocytes # (A) 2.55 X 10*3/uL (0.90-5.00); MCH 30.5 pg (27.0-32.0); MCV 92.5 FL (80.0-97.0); Mean Platelet Volume 10.3 FL (9.5-12.2); Monocytes # (A) 0.59 X 10*3/uL (0.20-1.00); Monocytes % (A) 7.4 %; NRBC Per 100 WBC 0 X 10*3/uL (0.00-0.01); Neutrophils # (A) 4.62 X 10*3/uL (1.80-7.70); Neutrophils % (A) 57.8 %; Platelet Count 283 X 10*3/uL (140-440); RBC 4.78 X 10*6/uL (4.10-5.20); RDW 13.2 % (11.5-14.5); WBC 7.98 X 10*3/uL (4.50-10.00)
== END | disposition home or self-care (01) ==
LOC: LABPAT 11:17
PROVIDERS: ATTEND Thoracic Surgery (Cardiothoracic Vascular Surgery)
CPT/HCPCS: 80051; 81001; 82565; 82947; 84520; 85025; 85610; 85730; 87086; 93005

== ENCOUNTER → 2024-08-28 | Outpatient (CLI) | payer MEDICARE | END | disposition home or self-care (01) | LOC: LABPAT 11:47 | PROVIDERS: ATTEND Thoracic Surgery (Cardiothoracic Vascular Surgery) | CPT/HCPCS: 86850; 86900; 86901 ==

== ENCOUNTER 2024-08-31 06:25 | Inpatient (IN) | payer MEDICARE ==
[2024-08-31] MEDS: IV FLUID CONTINUATION 1,000 ML IV ONE ×4 (06:49)
[2024-08-31] MEDS ORDERED: LIDOCAINE 1% (10MG/ML) FOR IV START INTRADERMA PRN (06:59)
[2024-08-31 07:34] LABS: Glucose,Whole Blood 106 mg/dL (70-110)
[2024-08-31] MEDS: LACTATED RINGERS 1,000 ML IV SCH (07:34)
[2024-08-31] MEDS: ONDANSETRON 4 MG/2 ML VIAL IVP ONE (07:34)
[2024-08-31] MEDS: MIDAZOLAM 2 MG/2 ML VIAL IV ONE (08:37)
[2024-08-31] MEDS: fentaNYL (PF) 50 MCG/ML 2 ML AMP IV PRN (08:37)
[2024-08-31] MEDS: BUPIVACAINE (PF) 0.5% 30 ML VIAL SQ ONE (08:47)
[2024-08-31] MEDS: droPERidol 5 MG/2 ML VIAL IVP ONE (08:47)
--- NOTE | 2024-08-31 08:57 | P.ANPRN ---
Procedure Note - Anesthesia - Nerve Block Performed Right Erector Spinae Single Time Out Performed: Yes (0816) Date of Procedure: 08/31/24 Procedure Start Time: 08:17 Procedure Stop Time: : Location of Patient: PreOp Indication: Acute Post-Operative Pain, Requested by Surgeon Specifically requested for management of pain by DrLandon: Jeff Felix Sedation Type: Sedate with meaningful contact maintained Preparation: Sterile Prep Position: Sitting Catheter: None Needle Types: Pajunk Needle Gauge: 21 Ultrasound used to visualize needle placement: Yes Ultrasound used to observe medication spread: Yes Injectate: 0.5% Ropivacaine (see comment for volume) (30cc) Blood Aspirated: No Pain Paresthesia on Injection Noted: No Resistance on Injection: Normal Image Stored and Saved: Yes Events: Uneventful and Well Tolerated
--- NOTE | 2024-08-31 08:58 | P.ANPRN ---
Procedure Note - Anesthesia - Invasive Line Left Arterial Line Time Out Performed: Yes (0816) Date of Procedure: 08/31/24 Time of Procedure: 08:23 Location of Patient: PreOp Preparation: Sterile Prep, Sterile Dressing Arterial Line Location: Radial (left) Ultrasound Used: No Purpose - Visualization and Identification of Vasculature: No Needle Guage: 20g Image Stored and Saved: No Narrative: Invasive line placement per sterile protocol utilized.
[2024-08-31] MEDS ORDERED: fentaNYL (PF) 50 MCG/ML 2 ML AMP ONE (09:03)
[2024-08-31] MEDS ORDERED: LIDOCAINE 1% INJ 10MG/ML (20 ML MDV) ONE (09:03)
[2024-08-31] MEDS ORDERED: PROPOFOL 10 MG/ML 20 ML VIAL IV ONE (09:03)
[2024-08-31] MEDS ORDERED: HYDROmorphone (PF) 1 MG/ML ONE (09:03)
[2024-08-31] MEDS ORDERED: ROPIVACAINE 5 MG/ML 30 ML VIAL ONE (09:03)
[2024-08-31] MEDS ORDERED: MIDAZOLAM 2 MG/2 ML VIAL ONE (09:03)
[2024-08-31] MEDS ORDERED: GLYCOPYRROLATE 0.2 MG/ML 2 ML VIAL ONE (09:03)
[2024-08-31] MEDS ORDERED: SUCCINYLCHOLINE CHLORIDE 200 MG/10 ML VIAL IV ONE (09:03)
[2024-08-31] MEDS ORDERED: KETAMINE HCL IN 0.9 % NACL 50 MG/5 ML SYRINGE ONE (09:03)
[2024-08-31] MEDS ORDERED: LABETALOL 5 MG/ML VIAL MDV ONE (09:03)
[2024-08-31] MEDS ORDERED: NEOSTIGMINE 1 MG/ML 10 ML VIAL ONE (09:03)
[2024-08-31] MEDS ORDERED: ROCURONIUM 10 MG/ML (5 ML VIAL) IV ONE (09:03)
--- NOTE | 2024-08-31 11:40 | P.OP ---
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 Postoperative Diagnosis: Same Procedure(s) Performed: Robotic assisted thoracoscopic wedge resection right upper lobe with mediastinal lymph node dissection Anesthesia: VERENA Surgeon: Jeff Felix Travel Insurance Agent #1: Wei Robledo Estimated Blood Loss (ml): 10 IV fluids (ml): 500 Urine output (ml): 200 Pathology: other (Wedge resection right upper lobe for frozen section confirming presence of lipidic carcinoma but with question of microscopic disease at margin, reresection of margin right upper lobe wedge; lymph node stations R4, R8, R10, R11, level 7) Condition: stable Disposition: PACU Indications for Procedure: 68-year-old female with enlarging mass in right upper lobe biopsy-proven lipidic adenocarcinoma Operative Findings: Able to successfully grossly wedge out mass with good margin. Lymph nodes all anthracotic. Frozen section showed question of microscopic disease at margin. Successfully able to reresected margin. Description of Procedure: Patient was brought to the operating room placed supine on the table. General anesthesia was induced. Double-lumen endotracheal tube was placed in position with fiberoptic bronchoscopy. There were no endobronchial lesions noted. Tube was secured and the patient was turned in the left lateral decubitus position. She was appropriately positioned for robotic lobectomy. The right chest was sterilely prepped and draped. Initial incision was made in the eighth interspace and an 8 mm port was placed. After confirmation of presence in the pleural space, CO2 insufflation was begun. 12 mm robotic ports were placed anterior and posterior to the initial port, a second 8 mm port was put posteriorly and fifth interspace, and a working port was placed between the 2 most anterior ports at the level of the diaphragm. The robot was docked. After initial robotic exploration of the chest, it was determined that we probably co uld wedge this tumor out despite its depth and the lung due to good lung compliance. Generous wedge resection of the superior portion of the right upper lobe was performed with multiple firings of the robotic stapler. The specimen was sent for pathology. While we awaited the frozen section, mediastinal lymph node dissection was performed including R4 are 8 and level 7 lymph nodes. No R9 lymph nodes were encountered. Further dissection in the hilum yielded R10 and R11 lymph nodes. All of these were sent for permanent section. Once the frozen section returned with question of microscopic involvement at the margin, we were able to reresect the margin in the area of the tumor to a depth of about a centimeter. This was felt to be adequate. This was removed in an Endo Catch bag and marked on the back table with the new margin. This was then sent for permanent section. The robot was undocked and the ports removed. The chest was irrigated with sterile water. The lung was inflated under water and no air leaks were noted. 28 Greek chest tube was placed through the most anterior incision. This was positioned posterior apically. It was secured with 0 Ethibond suture. Lung was inflated under thoracoscopic visualization and then the camera port removed. Skin incisions were closed with layers of Vicryl suture. Rib blocks were performed at the level of the incisions posteriorly with half percent Marcaine. Skin glue and dry sterile dressings were applied. Patient was turned supine, extubated and transferred to recovery in stable condition.
--- NOTE | 2024-08-31 12:57 | XR ---
EXAMINATION TYPE: XR chest 1V portable DATE OF EXAM: 08/31/2024 Comparison: 08/17/2024 Clinical History: 68-year-old female post lobectomy Findings: Right apical chest tube is present. No appreciable pneumothorax. There is new focal right suprahilar opacity. Bilateral interstitial density and patchy density left lung is increased. Impression: 1. Right-sided chest tube in place. New right suprahilar opacity could be postoperative change or a n ew area of consolidation/atelectasis. Attention on follow-up. 2. No appreciable pneumothorax. 3. Interstitial densities are slightly increased as are some patchy opacities on the left. Attention on follow-up. [facility], , 08/31/2024 12:54 PM
[2024-08-31] MEDS ORDERED: IPRATROPIUM-ALBUTEROL 3 ML NEB IH PRN (14:07)
[2024-08-31] MEDS ORDERED: bisacodyL 10 MG SUPP RECTAL PRN (14:07)
[2024-08-31] MEDS ORDERED: LORATADINE 10 MG TAB PO PRN (14:07)
[2024-08-31] MEDS: KETOROLAC 15 MG/ML 1 ML VIAL IVP SCH (14:12)
[2024-08-31 14:31] LABS: Glucose,Whole Blood 226 mg/dL (70-110)
[2024-08-31] MEDS: INSULIN ASPART (NovoLOG) 100 UNIT/ML VIAL SQ ONE (14:34)
--- NOTE | 2024-08-31 15:22 | P.CNPUL ---
History of Present Illness Consult date: 08/31/24 Requesting physician: Jeff Felix Reason for consult: abnormal CXR/CT Chief complaint: Right upper lobe lesion History of present illness: This is a 68-year-old female patient with a known history of anxiety, celiac disease, hypothyroidism, mild intermittent asthma, former smoker who was found to have a right upper lobe mass measuring 2.7 x 1.6 cm. 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 She was brought in today electively for a robotic assisted thoracoscopic wedge resection with mediastinal lymph node dissection. Postoperative day #0. She is seen in the recovery room. She is awake in no acute distress. She is maintaining O2 saturations in the 90s on 3 L/min per nasal cannula. She is afebrile. Hemodynamically stable. Right-sided chest tube in place to Pleur-evac. No leak detected currently. Glucose 226. Chest x-ray reveals right-sided chest tube in place. New right suprahilar opacity reflecting postoperative changes. No appreciable pneumothorax. Review of Systems REVIEW OF SYSTEMS: CONSTITUTIONAL: Denies any recent significant weight loss or weight gain. EYES: Denies change in vision. EARS, NOSE, MOUTH, THROAT: Denies headaches, denies sore throat. CARDIOVASCULAR: Denies chest pain, palpitations or syncopal episodes. RESPIRATORY: Denies shortness of breath, cough, congestion or hemoptysis. GASTROINTESTINAL: Denies change in appetite, denies abdominal pain GENITOURINARY: Denies hematuria, denies infections. MUSKULOSKELETAL: Denies pain, denies swelling. INTEGUMENTARY: Denies rash, denies eczema. NEUROLOGICAL: Denies recent memory loss, no recent seizure activity. PSYCHIATRIC: Denies anxiety, denies depression. HEMATOLOGIC/LYMPHATIC: Denies anemia, denies enlarged lymph nodes. Past Medical History Past Medical History: Asthma, GERD/Reflux, Hypertension, Thyroid Disorder Additional Past Medical History / Comment(s): "PRE DIABETIC-INSULIN RESISTANT", CELIAC, RENAL CALCULI History of Any Multi-Drug Resistant Organisms: None Reported Past Surgical History: Breast Surgery, Section, Cholecystectomy, Hysterectomy, Tonsillectomy, Uterine Ablation Additional Past Surgical History / Comment(s): VARICOSE VEIN-RIGHT LEG, BLADDER SUSPENSION, CYSTOCELE/RECTOCELE REPAIR, RENAL CALCULI REMOVAL Past Anesthesia/Blood Transfusion Reactions: No Reported Reaction, Motion Sickness, Postoperative Nausea & Vomiting (PONV) Additional Past Anesthesia/Blood Transfusion Reaction / Comment(s): did good after bronch, slow to wake up Smoking Status: Former smoker - Past Family History Sister(s) Family Medical History: Cancer Mother Family Medical History: Deep Vein Thrombosis (DVT), Pulmonary Embolus Medications and Allergies Home Medications Medication Instructions Recorded Confirmed Type Albuterol Sulfate [Proventil Hfa] 1 puff INHALATION Q6H PRN 06/01/23 08/31/24 History Famotidine [Pepcid] 20 mg PO BID 06/01/23 08/28/24 History amLODIPine BESYLATE 5 mg PO DAILY 06/01/23 08/28/24 History Aspirin [Adult Low Dose Aspirin EC] 81 mg PO DAILY 08/16/24 08/31/24 History Levothyroxine Sodium [Tirosint] 100 mcg PO DAILY 08/16/24 08/28/24 History Loratadine [Claritin] 10 mg PO DAILY PRN 08/16/24 08/28/24 History Losartan [Cozaar] 25 mg PO DAILY 08/16/24 08/28/24 History Magnesium 250 mg PO DAILY 08/16/24 08/31/24 History LORazepam [Ativan] 0.5 mg PO DIRECTED PRN 08/28/24 08/28/24 History Multivitamins, Thera [Multivitamin 1 tab PO DAILY 08/28/24 08/31/24 History (formulary)] Allergies Allergy/AdvReac Type Severity Reaction Status Date / Time clarithromycin [From Biaxin] Allergy Nausea & Verified 08/17/24 11:43 Vomiting & Diarrhea codeine Allergy Nausea & Verified 08/17/24 11:43 Vomiting doxycycline Allergy Nausea Verified 08/17/24 11:43 gluten Allergy Nausea & Verified 08/17/24 11:43 Vomiting latex Allergy Rash/Hives, Verified 08/17/24 11:43 SWELLING levofloxacin [From Levaquin] Allergy Unknown Verified 08/17/24 11:43 Penicillins Allergy Rash/Hives Verified 08/17/24 11:43 Sulfa (Sulfonamide Allergy Rash/Hives Verified 08/17/24 11:43 Antibiotics) cephalexin monohydrate AdvReac Abdominal Verified 08/17/24 11:43 [From Keflex] Pain egg AdvReac Nausea & Verified 08/28/24 10:19 Vomiting & Diarrhea milk AdvReac Unknown Verified 08/17/24 11:43 Physical Exam Vitals: Vital Signs Temp Pulse Pulse Resp BP BP BP 08/31/24 14:45 82 16 141/66 08/31/24 14:30 81 16 144/72 08/31/24 14:15 80 16 136/70 08/31/24 14:00 79 16 127/64 08/31/24 13:45 78 16 130/60 08/31/24 13:16 74 16 138/63 158/83 08/31/24 13:01 76 16 141/63 154/85 08/31/24 12:47 70 16 137/62 149/67 08/31/24 12:30 68 16 134/61 164/76 08/31/24 12:15 68 14 146/66 151/74 08/31/24 12:00 66 14 146/64 170/82 08/31/24 11:52 96.8 F L 68 14 170/71 162/61 08/31/24 08:25 77 16 125/68 08/31/24 07:18 98.2 F 77 16 153/75 Pulse Ox 08/31/24 14:45 93 L 08/31/24 14:30 93 L 08/31/24 14:15 93 L 08/31/24 14:00 93 L 08/31/24 13:45 94 L 08/31/24 13:16 96 08/31/24 13:01 96 08/31/24 12:47 96 08/31/24 12:30 96 08/31/24 12:15 95 08/31/24 12:00 93 L 08/31/24 11:52 94 L 08/31/24 08:25 95 08/31/24 07:18 96 Intake and Output 08/31/24 08/31/24 08/31/24 06:59 14:59 22:59 Intake Total 600 950 Output Total 170 Balance 600 780 Intake: IV 600 950 Output: Urine 125 Estimated Blood Loss 45 Other: Weight 94.7 kg GENERAL EXAM: Alert, drifts off easily, 68-year-old female, on 3 L nasal cannula, fairly comfortable in no apparent distress. HEAD: Normocephalic. EYES: Normal reaction of pupils, equal size. NOSE: Clear with pink turbinates. THROAT: No erythema or exudates. NECK: No masses, no JVD. CHEST: No chest wall deformity. Right sided chest tube in place to Pleur-evac. No leak currently LUNGS: Equal air entry with no crackles, wheeze, rhonchi or dullness. CVS: S1 and S2 normal with no audible murmur, regular rhythm. ABDOMEN: No hepatosplenomegaly, normal bowel sounds, no guarding or rigidity. SPINE: No scoliosis or deformity SKIN: No rashes CENTRAL NERVOUS SYSTEM: No focal deficits, tone is normal in all 4 extremities. EXTREMITIES: There is no peripheral edema. No clubbing, no cyanosis. Peripheral pulses are intact. Results - Laboratory Findings Abnormal lab findings: Abnormal Labs 08/31/24 14:28 POC Glucose (mg/dL) 226 H - Diagnostic Findings Chest x-ray: image reviewed Assessment and Plan Assessment: Lipidic adenocarcinoma of the right upper lobe, status post robotic assisted tho racoscopic wedge resection with mediastinal lymph node dissection. Postoperative day #0 History of smoking Mild intermittent asthma Anxiety disorder Celiac disease Hypothyroidism Plan: The patient was seen and evaluated Chest x-ray, labs and medications reviewed Educated regarding the use incentive spirometer Titrate the FiO2 as tolerated Increase her activity as tolerated Follow-up chest x-ray in a.m. We will continue to follow and make further recommendations based on her clinical status I have personally seen and examined the patient, performed the documentation and the assessment and plan as written. Number of minutes spent on the visit: 20 Dictation was produced using [employer] dictation software. Please excuse any grammatical, word or spelling errors.
[2024-08-31] MEDS: IPRATROPIUM-ALBUTEROL 3 ML NEB IH SCH (16:10)
[2024-08-31] MEDS: DEXTROSE 5%-0.45% NACL 1,000 ML IV SCH (17:39)
[2024-08-31] MEDS: ONDANSETRON 4 MG/2 ML VIAL IVP PRN (17:40)
[2024-08-31] MEDS: HEPARIN SODIUM,PORCINE 5,000 UNIT/ML 1 ML VIAL SQ SCH (17:40)
[2024-08-31] MEDS: DEXAMETHASONE SOD PHOSPHATE 4 MG/ML 1 ML VIAL IV ONE (18:17)
[2024-08-31] MEDS: traMADol 50 MG TAB PO PRN (21:14)
[2024-08-31] MEDS: FAMOTIDINE 20 MG TAB PO SCH (21:14)
[2024-09-01] MEDS: ACETAMINOPHEN TAB 325 MG TAB PO PRN (03:03)
[2024-09-01] MEDS: LEVOTHYROXINE 100 MCG TAB PO SCH (05:46)
[2024-09-01] MEDS: LORazepam 0.5 MG TAB PO PRN (05:46)
[2024-09-01 06:40] LABS: Basophils % (A) 0 %; Eosinophils # (A) 0.1 k/uL (0-0.7); Eosinophils % (A) 1 %; HCT 39.6 % (34.0-46.0); HGB 12.6 gm/dL (11.4-16.0); Lymphocytes # (A) 1.9 k/uL (1.0-4.8); Lymphocytes % (A) 16 %; MCH 30.3 pg (25.0-35.0); MCV 94.8 fL (80.0-100.0); Mean Platelet Volume 7.5; Monocytes # (A) 0.7 k/uL (0-1.0); Monocytes % (A) 6 %; Neutrophils % (A) 76 %; Platelet Count 251 k/uL (150-450); RBC 4.17 m/uL (3.80-5.40); WBC 11.9 k/uL (3.8-10.6)
[2024-09-01 06:51] LABS: African American GFR (CKD) >90 (>60 ml/min/1.73 sqM); Anion Gap 5 mmol/L; Blood Urea Nitrogen 11 mg/dL (7-17); Calcium 8.3 mg/dL (8.4-10.2); Carbon Dioxide 23 mmol/L (22-30); Chloride 108 mmol/L (98-107); Glucose 115 mg/dL (74-99); Non-African American GFR(CKD) >90 (>60 ml/min/1.73 sqM); Potassium 3.7 mmol/L (3.5-5.1); Sodium 136 mmol/L (137-145)
[2024-09-01] MEDS: amLODIPine 5 MG TAB PO SCH (08:48)
[2024-09-01] MEDS: LOSARTAN 25 MG TAB PO SCH (08:48)
[2024-09-01] MEDS: MAGNESIUM OXIDE 400 MG TAB PO SCH (08:48)
[2024-09-01] MEDS: ASPIRIN 81 MG PO SCH (08:48)
[2024-09-01] MEDS: MULTIVITAMINS, THERA 1 EACH TAB PO SCH (08:50)
--- NOTE | 2024-09-01 09:28 | XR ---
EXAMINATION TYPE: XR chest 2V DATE OF EXAM: 09/01/2024 COMPARISON: 08/31/2024 HISTORY: 68-year-old female postwedge resection TECHNIQUE: PA and lateral views FINDINGS: Right apical chest tube in place. While there is relative paucity of lung markings at the right apex, no discrete pneumothorax is visualized. There is improving aeration with resolving interstitial arellano ges on the left and improving right suprahilar opacity. Some mild patchy density remains right suprah ilar region and left base. IMPRESSION: 1. Improving aeration with some residual right suprahilar and left basilar opacity. Right suprahilar change is likely postsurgical and residual atelectasis. 2. Right-sided chest tube in place. While there is a relative paucity of lung markings at the right a pex, no discrete pneumothorax is visualized. Ongoing follow-up can be performed. [facility], , 09/01/2024 8:55 AM
--- NOTE | 2024-09-01 11:36 | P.PN ---
Subjective Progress Note Date: 09/01/24 Principal diagnosis: Lipidic adenocarcinoma right upper lobe. Past medical history significant for hypertension, mild intermittent asthma, anxiety, celiac disease, hypothyroidism, allergic rhinitis, kidney stone, GERD, and is a remote history of nicotine dependence, quit 15 years ago. POD #1 Robotic assisted thoracoscopic wedge resection right upper lobe with mediastinal lymph node dissection. The patient was seen and examined in follow-up today September 01, 2024 at her bed side on the third floor cardiac stepdown unit. She is currently sitting up to the bedside chair, is awake, alert, oriented x 3 and is in no acute apparent distress. Her daughter is present at her bedside. The patient denies any complaints of shortness of breath at this time, although is complaining of surgical type pain to her right upper shoulder area. She reports the pain is controlled with the current pain medication regimen. Right pleural chest tube remains in place to waterseal, intermittent airleak present with coughing. Draining thin serosanguineous drainage. Remote telemetry is showing normal sinus rhythm heart rate 84 bpm with a first-degree heart block. Oxygen saturations are 93% on room air and she is achieving 1850 mL on her incentive spirometry with encouragement. Laboratory and chest x-ray results were reviewed. Objective - Vital Signs Vital signs: Vital Signs Temp 98.2 F 09/01/24 04:00 Pulse 92 09/01/24 04:00 Resp 18 09/01/24 04:00 BP 145/77 09/01/24 04:00 Pulse Ox 93 L 09/01/24 08:56 FiO2 Intake & Output 08/31/24 09/01/24 09/01/24 18:59 06:59 18:59 Intake Total 1150 480 Output Total 180 460 Balance 970 20 Weight 94.7 kg 95.2 kg Intake: IV 1150 Oral 480 Output: Drainage 10 35 Right Upper Chest 10 35 Urine 125 425 Estimated Blood Loss 45 Other: Voiding Method Indwelling Catheter Indwelling Catheter - Exam CONSTITUTIONAL: Appears comfortable, cooperative, no acute distress RESPIRATORY: Lungs sounds diminished bilaterally. Respirations symmetrical, nonlabored. Currently on room air with oxygen saturation 93%. Able to achieve 1850 mL on her incentive spirometry. Strong cough. CARDIOVASCULAR: S1, S2 present. Regular rate and rhythm, sinus rhythm on telemetry, heart rate 83 bpm with a first-degree heart block. Palpable peripheral pulses bilaterally. No edema present. No calf pain or tenderness noted. SCDs present. GASTROINTESTINAL: Abdomen soft, nontender, nondistended. Active bowel sounds present 4 quadrants. Tolerating diet. Positive bowel movement. Episodes of nausea GENITOURINARY: Continues to void. Urine output 425 mL in the last 8 hours. INTEGUMENTARY: Skin is warm and dry with evidence of good perfusion. Right chest thoracic incisions well approximated and covered with dry intact dressing. NEUROLOGIC: Cranial nerves II through XII intact MUSKULOSKELETAL: Able to move all extremities, strength equal bilaterally, gait normal PSYCHIATRIC: Alert and oriented to person place and time, appropriate affect, intact judgment and insight INVASIVE LINES AND TUBES: Right pleural chest tubes present and is currently to waterseal, no air leaks present. Right pleural chest tube with 35 mL thin serosanguineous drainage overnight, and 100 mL last 24 hours. - Allied health notes Allied health notes reviewed: nursing - Labs CBC & Chem 7: 09/01/24 06:11 09/01/24 06:11 Labs: Abnormal Lab Results - Last 24 Hours (Table) 08/31/24 09/01/24 09/01/24 Range/Units 14:28 06:11 06:11 WBC 11.9 H (3.8-10.6) k/uL Neutrophils # 9.0 H (1.3-7.7) k/uL Sodium 136 L (137-145) mmol/L Chloride 108 H (98-107) mmol/L Glucose 115 H (74-99) mg/dL POC Glucose (mg/dL) 226 H (70-110) mg/dL Calcium 8.3 L (8.4-10.2) mg/dL - Imaging and Cardiology Chest x-ray: report reviewed, image reviewed Assessment and Plan Assessment: Lepidic adenocarcinoma right upper lobe, status post robotic assisted thoracoscopic wedge resection right upper lobe with mediastinal lymph node dissection History of hypertension Mild intermittent asthma Anxiety Hypothyroidism Allergic rhinitis History of kidney stones GERD History of nicotine dependence, quit smoking around 15 years ago Plan: We will keep her right pleural chest tube in place for another 24 hours and kelsey tor for airleak resolution. Encourage use of incentive spirometry 10 times every hour while awake. Pain control per current as needed orders Continue to monitor daily chest x-rays Increase activity as tolerated, out of bed for all meals. Ambulate in the hallway as tolerated. Continue to follow surgical pathology results. More recommendations to follow based on patient's clinical course. Time with Patient: Greater than 30
--- NOTE | 2024-09-01 14:42 | P.PN ---
Subjective Progress Note Date: 09/01/24 Principal diagnosis: POD #1 Robotic assisted thoracoscopic wedge resection right upper lobe with mediastinal lymph node dissection. This is a 68-year-old female patient with a known history of anxiety, celiac disease, hypothyroidism, mild intermittent asthma, former smoker who was found to have a right upper lobe mass measuring 2.7 x 1.6 cm. 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 She was brought in today electively for a robotic assisted thoracoscopic wedge resection with mediastinal lymph node dissection. Postoperative day #0. She is seen in the recovery room. She is awake in no acute distress. She is maintaining O2 saturations in the 90s on 3 L/min per nasal cannula. She is afebrile. Hemodynamically stable. Right-sided chest tube in place to Pleur-evac. No leak detected currently. Glucose 226. Chest x-ray reveals right-sided chest tube in place. New right suprahilar opacity reflecting postoperative changes. No appreciable pneumothorax. Patient was seen today on 09/01/2024, patient continues to do well, I saw this patient yesterday, continues to have right-sided chest tube in place, there is air leak present there is a small tiny pneumothorax in the right apex, hence the right-sided chest tube is not ready to be removed, patient will be reassessed in the next 24 hours and decide whether the chest tube could be removed and then the patient could be sent home. No cough no wheezing she does have some pain fairly well-controlled. Patient is doing extremely well with incentive spirometry WBC count is 11.9 hemoglobin 12.6 basic metabolic profile is normal and renal profile is normal Objective - Vital Signs Vital signs: Vital Signs Temp 97.4 F L 09/01/24 11:35 Pulse 80 09/01/24 11:35 Resp 20 09/01/24 11:35 BP 130/80 09/01/24 11:35 Pulse Ox 88 L 09/01/24 11:35 FiO2 Intake & Output 08/31/24 09/01/24 09/01/24 18:59 06:59 18:59 Intake Total 1150 480 Output Total 180 460 0 Balance 970 20 0 Weight 94.7 kg 95.2 kg Intake: IV 1150 Oral 480 Output: Drainage 10 35 0 Right Upper Chest 10 35 0 Urine 125 425 Estimated Blood Loss 45 Other: Voiding Method Indwelling Catheter Indwelling Catheter Indwelling Catheter - Exam GENERAL EXAM: 68-year-old white female in no distress HEAD: Normocephalic. EYES: Normal reaction of pupils, equal size. NOSE: Clear with pink turbinates. THROAT: No erythema or exudates. NECK: No masses, no JVD. CHEST: No chest wall deformity. Right sided chest tube in place to Pleur-evac. There is evidence of a small intermittent leak noted LUNGS: Equal air entry with no crackles, wheeze, rhonchi or dullness. CVS: S1 and S2 normal with no audible murmur, regular rhythm. ABDOMEN: No hepatosplenomegaly, normal bowel sounds, no guarding or rigidity. SKIN: No rashes CENTRAL NERVOUS SYSTEM: Alert oriented x 3 no gross focal deficit EXTREMITIES: No clubbing edema or cyanosis - Labs CBC & Chem 7: 09/01/24 06:11 09/01/24 06:11 Labs: Abnormal Lab Results - Last 24 Hours (Table) 09/01/24 09/01/24 Range/Units 06:11 06:11 WBC 11.9 H (3.8-10.6) k/uL Neutrophils # 9.0 H (1.3-7.7) k/uL Sodium 136 L (137-145) mmol/L Chloride 108 H (98-107) mmol/L Glucose 115 H (74-99) mg/dL Calcium 8.3 L (8.4-10.2) mg/dL Assessment and Plan Assessment: Impression: adenocarcinoma of the right upper lobe, status post robotic assisted thoracoscopic wedge resection with mediastinal lymph node dissection. Postoperative day #1 History of smoking Mild intermittent asthma Anxiety disorder Celiac disease Hypothyroidism Recommendation: Continue present supportive care measures Continue chest tube to wall suction Continue incentive spirometry Resume home meds Ambulate Titrate FiO2 accordingly Daily x-rays of the chest Will continue to follow Time with Patient: Less than 30
[2024-09-01 19:58] VITALS: TEMP 97.3
[2024-09-01 21:42] VITALS: RESP 18
[2024-09-01] MEDS: DEXTROSE 5% IN WATER 100 ML with AMIODARONE 150 MG IV ONE (23:27)
[2024-09-01] MEDS: AMIODARONE 360 MG in DEXTROSE 5% IN WATER 200 ML IV ONE (23:34)
[2024-09-02] MEDS: LORazepam 1 MG TAB PO STA (00:14)
[2024-09-02] MEDS: AMIODARONE 450 MG in DEXTROSE 5% IN WATER 250 ML IV SCH (05:44)
--- NOTE | 2024-09-02 07:33 | XR ---
EXAMINATION TYPE: XR chest 2V DATE OF EXAM: 09/02/2024 5:42 AM CLINICAL INDICATION: Female, 68 years old with history of post op right upper lung wedge resection; P HH COMPARISON: Chest radiographs from 09/01/2024 TECHNIQUE: XR chest 2V Frontal and lateral views of the chest. FINDINGS: Lungs/Pleura: Small right apical pneumothorax suggested. Right thoracotomy tube in place. There is no evidence of pleural effusion, focal consolidation, or pneumothorax. Pulmonary vascularity: Unremarkable. Heart/mediastinum: Cardiomediastinal silhouette is unremarkable. Musculoskeletal: No acute osseous pathology. IMPRESSION: Right thoracotomy tube with small apical pneumothorax. [facility], , 09/02/2024 7:30 AM
[2024-09-02 07:35] LABS: HCT 38.6 % (34.0-46.0); HGB 13.2 gm/dL (11.4-16.0); MCHC 34.3 g/dL (31.0-37.0); MCV 93.4 fL (80.0-100.0); Platelet Count 212 k/uL (150-450); RBC 4.13 m/uL (3.80-5.40); RDW 13.4 % (11.5-15.5); WBC 9.9 k/uL (3.8-10.6)
[2024-09-02 07:53] LABS: African American GFR (CKD) >90 (>60 ml/min/1.73 sqM); Anion Gap 8 mmol/L; Blood Urea Nitrogen 9 mg/dL (7-17); Calcium 8.8 mg/dL (8.4-10.2); Carbon Dioxide 23 mmol/L (22-30); Chloride 104 mmol/L (98-107); Glucose 120 mg/dL (74-99); Non-African American GFR(CKD) >90 (>60 ml/min/1.73 sqM); Potassium 3.7 mmol/L (3.5-5.1); Sodium 135 mmol/L (137-145)
[2024-09-02] MEDS: METOPROLOL TARTRATE 25 MG TAB PO SCH (09:30)
[2024-09-02] MEDS: AMIODARONE 200 MG TAB PO SCH (09:30)
--- NOTE | 2024-09-02 10:33 | XR ---
EXAMINATION TYPE: XR chest 2V DATE OF EXAM: 09/02/2024 9:56 AM CLINICAL INDICATION: Female, 68 years old with history of Post chest tube removal; concern for pneumo thorax. History of pneumothorax COMPARISON: Chest radiographs from 09/02/2024 TECHNIQUE: XR chest 2V Frontal and lateral views of the chest. FINDINGS: Lungs/Pleura: There is no evidence of pleural effusion, focal consolidation, or pneumothorax. Pulmonary vascularity: Unremarkable. Heart/mediastinum: Cardiomediastinal silhouette is unremarkable. Musculoskeletal: No acute osseous pathology. IMPRESSION: Right thoracotomy tube removal [facility], , 09/02/2024 10:31 AM
--- NOTE | 2024-09-02 10:51 | P.PN ---
Subjective Progress Note Date: 09/02/24 Principal diagnosis: Lipidic adenocarcinoma right upper lobe. Past medical history significant for hypertension, mild intermittent asthma, anxiety, celiac disease, hypothyroidism, allergic rhinitis, kidney stone, GERD, and is a remote history of nicotine dependence, quit 15 years ago. POD #2 Robotic assisted thoracoscopic wedge resection right upper lobe with mediastinal lymph node dissection. The patient was seen in follow-up today September 02, 2024 at her bedside on the [facility] cardiac stepdown unit. She is currently sitting up to her bedside chair, is awake, alert, oriented x 3 and is in no acute apparent distress. Denies any complaints of nausea, this a.m. although is complaining of some intermittent episodes of shortness of breath and surgical type pain to her right shoulder blade area. Currently rating her pain 4-5 out of 10 on the pain scale. The patient went into atrial fibrillation this morning and was started on an amiodarone drip per protocol, and subsequently converted this morning around 9 AM to normal sinus rhythm heart rate 78 bpm. The patient reports that she has had some fluttering of her heart in the past while walking the dog associated with shortness of breath, but has never officially been diagnosed with atrial fibrillation previously. Oxygen saturations are 96% on 3 L nasal cannula and she is achieving 2000 mL on her incentive spirometry with encouragement. Right pleural chest tube remains in place to waterseal. No air leak is present. Draining thin serosanguineous drainage with 30 mL output in the last 8 hours and 80 mL output in the last 24 hours. Laboratory and chest x-ray results reviewed. Objective - Vital Signs Vital signs: Vital Signs Temp 97.3 F L 09/01/24 19:57 Pulse 78 09/02/24 08:59 Resp 18 09/02/24 08:59 BP 126/73 09/02/24 08:59 Pulse Ox 96 09/02/24 08:59 FiO2 Intake & Output 09/01/24 09/02/24 09/02/24 18:59 06:59 18:59 Output Total 337 36 Balance -337 -36 Weight 94.8 kg Output: Drainage 22 36 Right Upper Chest 22 36 Urine 315 Uretheral (Younger) 315 Other: Voiding Method Indwelling Catheter Toilet - Exam CONSTITUTIONAL: Appears comfortable, cooperative, no acute distress RESPIRATORY: Lungs sounds diminished bilaterally. Respirations symmetrical, nonlabored. Currently on 3 L nasal cannula with oxygen saturation 96%. Able to achieve 2000 mL on her incentive spirometry. Strong cough. CARDIOVASCULAR: S1, S2 present. Regular rate and rhythm, sinus rhythm on telemetry, heart rate 78 bpm with a first-degree heart block, the patient was in paroxysmal atrial fibrillation this morning with a heart rate in the low 100s.. Palpable peripheral pulses bilaterally. No edema present. No calf pain or tenderness noted. SCDs present. GASTROINTESTINAL: Abdomen soft, nontender, nondistended. Active bowel sounds present 4 quadrants. Tolerating diet. Positive bowel movement. GENITOURINARY: Continues to void. INTEGUMENTARY: Skin is warm and dry with evidence of good perfusion. Right chest thoracic incisions well approximated and covered with dry intact dressing. NEUROLOGIC: Cranial nerves II through XII intact MUSKULOSKELETAL: Able to move all extremities, strength equal bilaterally, gait normal PSYCHIATRIC: Alert and oriented to person place and time, appropriate affect, intact judgment and insight INVASIVE LINES AND TUBES: Right pleural chest tubes present and is currently to waterseal, no air leaks present. Right pleural chest tube with 30 mL thin serosanguineous drainage overnight, and 80 mL last 24 hours. - Allied health notes Allied health notes reviewed: nursing - Labs CBC & Chem 7: 09/02/24 06:31 09/02/24 06:31 Labs: Abnormal Lab Results - Last 24 Hours (Table) 09/02/24 Range/Units 06:31 Sodium 135 L (137-145) mmol/L Glucose 120 H (74-99) mg/dL - Imaging and Cardiology Chest x-ray: report reviewed, image reviewed Assessment and Plan Assessment: Lepidic adenocarcinoma right upper lobe, status post robotic assisted thoracoscopic wedge resection right upper lobe with mediastinal lymph node dissection Paroxysmal atrial fibrillation, unexpected, known common occurrence after thoracic surgery, currently in normal sinus rhythm History of hypertension Mild intermittent asthma Anxiety Hypothyroidism Allergic rhinitis History of kidney stones GERD History of nicotine dependence, quit smoking around 15 years ago Plan: Right pleural chest tube removed without incident. Encourage use of incentive spirometry 10 times every hour while awake. Pain control per current as needed orders We will repeat a chest x-ray post chest tube removal. Increase activity as tolerated, out of bed for all meals. Ambulate in the hallw ay as tolerated. Continue to follow surgical pathology results. Consult cardiology for atrial fibrillation. She was started on metoprolol to tartrate 25 mg p.o. twice daily and amiodarone drip per protocol, we will transition over to oral amiodarone 400 mg p.o. twice daily and will be discharged home with a titration scale. Plan is to discharge patient home this afternoon. More recommendations to follow based on patient's clinical course. Time with Patient: Greater than 30
[2024-09-02 11:12] LABS: T4, Free (Free Thyroxine) 1.72 ng/dL (0.78-2.19)
[2024-09-02 11:57] VITALS: BP 148/75; PULSE 74
--- NOTE | 2024-09-02 13:00 | P.CRDCN ---
History of Present Illness Consult date: 09/02/24 Consult reason: atrial fibrillation History of present illness: The patient is a 68-year-old female who is currently admitted to the hospital after undergoing thorascopic wedge resection for adenocarcinoma of the right upper lobe. Postoperatively the patient developed A-fib and was started on IV amiodarone and subsequently returned to sinus rhythm. Cardiology was consulted for A-fib management DIAGNOSTICS: EKG shows atrial fibrillation with moderate ventricular rate at 120 bpm Chest x-ray shows removal of right thoracotomy tube without evidence of pleural effusion, focal consolidation or pneumothorax Lab data: WBC 9.9, hemoglobin 13.2, hematocrit 38.6, sodium 135, potassium 3.7, BUN 9, creatinine 0.56, TSH 0.23 REVIEW OF SYSTEMS: No fever or chills. No cough or expectoration. No diaphoresis. Patient denies headache, dizziness, blurred vision, double vision. Patient denies any stomach discomfort. No nausea, vomiting. No hematochezia. No hematemesis. Denies any black stools or blood in his stools. Denies dysuria or hematuria. No muscle weakness or numbness. PHYSICAL EXAMINATION: This is a 68-year-old female in no apparent distress at the time of my examination. HEENT: Head is atraumatic, normocephalic. Pupils are equal, round. Sclerae anicteric. Conjunctivae are clear. Mucous membranes of the mouth are moist. Neck is supple. There is no jugular venous distention. No carotid bruit is heard. CHEST EXAMINATION: Lungs are diminished to auscultation. No chest wall tenderness is noted on palpation or with deep breathing. HEART EXAMINATION: Heart regular rate and rhythm. S1, S2 heard. No murmurs, gallops or rub. ABDOMEN: Soft, nontender. Bowel sounds are heard. No organomegaly noted. EXTREMITIES: 2+ peripheral pulses with no evidence of peripheral edema and no calf tenderness noted. NEUROLOGIC EXAMINATION: Patient is awake, alert and oriented x3. FINAL ASSESSMENT AND PLAN: New onset A-fib with RVR Adenocarcinoma of the right upper lobe Status post robotic assisted thorascopic wedge resection with mediastinal lymph node dissection Former smoker Hypothyroidism PLAN: Reduce levothyroxine to 88 mcg Transition to oral amiodarone, which she will taper off over the next month No anticoagulation at this time Outpatient follow-up with Dr. Enamorado in 3 weeks I am dictating on behalf of Dr Duane Enamorado's history/physical and assessment/plan. Past Medical History Past Medical History: Asthma, GERD/Reflux, Hypertension, Thyroid Disorder Additional Past Medical History / Comment(s): "PRE DIABETIC-INSULIN RESISTANT", CELIAC, RENAL CALCULI History of Any Multi-Drug Resistant Organisms: None Reported Past Surgical History: Breast Surgery, Section, Cholecystectomy, Hysterectomy, Tonsillectomy, Uterine Ablation Additional Past Surgical History / Comment(s): VARICOSE VEIN-RIGHT LEG, BLADDER SUSPENSION, CYSTOCELE/RECTOCELE REPAIR, RENAL CALCULI REMOVAL Past Anesthesia/Blood Transfusion Reactions: No Reported Reaction, Motion Sickn ess, Postoperative Nausea & Vomiting (PONV) Additional Past Anesthesia/Blood Transfusion Reaction / Comment(s): did good after bronch, slow to wake up Smoking Status: Former smoker - Past Family History Sister(s) Family Medical History: Cancer Mother Family Medical History: Deep Vein Thrombosis (DVT), Pulmonary Embolus Medications and Allergies Home Medications Medication Instructions Recorded Confirmed Type Albuterol Sulfate [Proventil Hfa] 1 puff INHALATION Q6H PRN 06/01/23 08/31/24 History Famotidine [Pepcid] 20 mg PO BID 06/01/23 08/28/24 History amLODIPine BESYLATE 5 mg PO DAILY 06/01/23 08/28/24 History Aspirin [Adult Low Dose Aspirin EC] 81 mg PO DAILY 08/16/24 08/31/24 History Levothyroxine Sodium [Tirosint] 100 mcg PO DAILY 08/16/24 08/28/24 History Loratadine [Claritin] 10 mg PO DAILY PRN 08/16/24 08/28/24 History Losartan [Cozaar] 25 mg PO DAILY 08/16/24 08/28/24 History Magnesium 250 mg PO DAILY 08/16/24 08/31/24 History LORazepam [Ativan] 0.5 mg PO DIRECTED PRN 08/28/24 08/28/24 History Multivitamins, Thera [Multivitamin 1 tab PO DAILY 08/28/24 08/31/24 History (formulary)] Acetaminophen Tab [Tylenol] 650 mg PO Q4HR PRN tab 09/02/24 Rx Amiodarone [Cordarone] 400 mg PO BID #47 tab 09/02/24 Rx Apixaban [Eliquis] 5 mg PO BID #60 tab 09/02/24 Rx Metoprolol Tartrate [Lopressor] 25 mg PO BID #60 tab 09/02/24 Rx Allergies Allergy/AdvReac Type Severity Reaction Status Date / Time clarithromycin [From Biaxin] Allergy Nausea & Verified 08/17/24 11:43 Vomiting & Diarrhea codeine Allergy Nausea & Verified 08/17/24 11:43 Vomiting doxycycline Allergy Nausea Verified 08/17/24 11:43 gluten Allergy Nausea & Verified 08/17/24 11:43 Vomiting latex Allergy Rash/Hives, Verified 08/17/24 11:43 SWELLING levofloxacin [From Levaquin] Allergy Unknown Verified 08/17/24 11:43 Penicillins Allergy Rash/Hives Verified 08/17/24 11:43 Sulfa (Sulfonamide Allergy Rash/Hives Verified 08/17/24 11:43 Antibiotics) cephalexin monohydrate AdvReac Abdominal Verified 08/17/24 11:43 [From Keflex] Pain egg AdvReac Nausea & Verified 08/28/24 10:19 Vomiting & Diarrhea milk AdvReac Unknown Verified 08/17/24 11:43 Physical Exam Vitals: Vital Signs Temp Pulse Pulse Resp BP Pulse Ox 09/02/24 11:54 74 18 148/75 93 L 09/02/24 10:25 78 18 09/02/24 08:59 78 18 126/73 96 09/02/24 04:00 99 18 149/97 90 L 09/02/24 02:00 18 09/01/24 23:38 115 H 18 138/85 90 L 09/01/24 22:37 116 H 18 142/89 95 09/01/24 20:00 18 09/01/24 19:57 97.3 F L 84 16 149/80 95 09/01/24 15:50 78 18 143/76 94 L Intake and Output 09/01/24 09/02/24 09/02/24 22:59 06:59 14:59 Output Total 20 28 Balance -20 -28 Output: Drainage 20 28 Right Upper Chest 20 28 Other: Voiding Method Toilet Toilet Toilet Weight 94.8 kg Results 09/02/24 06:31 09/02/24 06:31 CBC 09/02/24 Range/Units 06:31 WBC 9.9 (3.8-10.6) k/uL RBC 4.13 (3.80-5.40) m/uL Hgb 13.2 (11.4-16.0) gm/dL Hct 38.6 (34.0-46.0) % Plt Count 212 (150-450) k/uL Comprehensive Metabolic Panel 09/02/24 Range/Units 06:31 Sodium 135 L (137-145) mmol/L Potassium 3.7 (3.5-5.1) mmol/L Chloride 104 (98-107) mmol/L Carbon Dioxide 23 (22-30) mmol/L BUN 9 (7-17) mg/dL Creatinine 0.56 (0.52-1.04) mg/dL Glucose 120 H (74-99) mg/dL Calcium 8.8 (8.4-10.2) mg/dL Current Medications Generic Name Dose Route Start Last Admin Trade Name Freq PRN Reason Stop Dose Admin Acetaminophen 650 mg 08/31/24 14:07 09/01/24 03:03 Acetaminophen Tab 325 Mg Tab PO 650 mg Q4HR PRN Administration Mild to Moderate Pain (1 - 6) Albuterol/Ipratropium 3 ml 08/31/24 14:07 Ipratropium-Albuterol 3 Ml Neb IH RT-Q1H PRN Shortness Of Breath Or Wheezing Amiodarone HCl 400 mg 09/02/24 09:15 09/02/24 09:30 Amiodarone 200 Mg Tab PO 400 mg BID JOSE Administration Amlodipine Besylate 5 mg 09/01/24 09:00 09/02/24 09:02 Amlodipine 5 Mg Tab PO 5 mg DAILY JOSE Administration Aspirin 81 mg 09/01/24 09:00 09/02/24 09:02 Aspirin 81 Mg PO 81 mg DAILY JOSE Administration Bisacodyl 10 mg 08/31/24 14:07 Bisacodyl 10 Mg Supp RECTAL DAILY PRN Constipation Famotidine 20 mg 08/31/24 21:00 09/02/24 09:01 Famotidine 20 Mg Tab PO 20 mg BID JOSE Administration Heparin Sodium (Porcine) 5,000 unit 08/31/24 16:00 09/02/24 09:02 Heparin Sodium,Porcine 5,000 Unit/Ml 1 Ml Vial SQ 5,000 unit Q8HR JOSE Administration Amiodarone HCl 450 mg/ 250 mls @ 16.667 mls/hr 09/02/24 06:00 09/02/24 05:44 Dextrose/Water IV 09/02/24 23:59 0.5 mg/min .Q15H JOSE 16.667 mls/hr Administration Protocol 0.5 MG/MIN Ketorolac Tromethamine 15 mg 08/31/24 14:07 09/02/24 12:49 Ketorolac 15 Mg/Ml 1 Ml Vial IVP 09/03/24 14:06 Not Given Q6HR [facility] Levothyroxine Sodium 88 mcg 09/03/24 06:30 Levothyroxine 88 Mcg Tab PO DAILY@0630 [facility] Loratadine 10 mg 08/31/24 14:07 Loratadine 10 Mg Tab PO DAILY PRN allergies Lorazepam 0.5 mg 08/31/24 20:38 09/02/24 12:49 Lorazepam 0.5 Mg Tab PO 0.5 mg Q8H PRN Administration Anxiety Losartan Potassium 25 mg 09/01/24 09:00 09/02/24 09:01 Losartan 25 Mg Tab PO 25 mg DAILY [facility] Administration Magnesium Oxide 200 mg 09/01/24 09:00 09/02/24 09:04 Magnesium Oxide 400 Mg Tab PO Not Given DAILY [facility] Metoprolol Tartrate 25 mg 09/02/24 09:15 09/02/24 09:30 Metoprolol Tartrate 25 Mg Tab PO 25 mg BID [facility] Administration Multivitamins 1 each 09/01/24 09:00 09/02/24 09:01 Multivitamins, Thera 1 Each Tab PO Not Given DAILY [facility] Ondansetron HCl 4 mg 08/31/24 14:07 09/02/24 05:04 Ondansetron 4 Mg/2 Ml Vial IVP 4 mg Q8HR PRN Administration Nausea And Vomiting Tramadol HCl 50 mg 08/31/24 14:07 09/01/24 20:05 Tramadol 50 Mg Tab PO 50 mg QID PRN Administration Severe Pain (Scale 7 to 10) Intake and Output 09/01/24 09/02/24 09/02/24 22:59 06:59 14:59 Output Total 20 28 Balance -20 -28 Output: Drainage 20 28 Right Upper Chest 20 28 Other: Voiding Method Toilet Toilet Toilet Weight 94.8 kg 09/02/24 06:31 09/02/24 06:31
--- NOTE | 2024-09-02 13:23 | P.PN ---
Subjective Progress Note Date: 09/02/24 Principal diagnosis: POD #1 Robotic assisted thoracoscopic wedge resection right upper lobe with mediastinal lymph node dissection. This is a 68-year-old female patient with a known history of anxiety, celiac disease, hypothyroidism, mild intermittent asthma, former smoker who was found to have a right upper lobe mass measuring 2.7 x 1.6 cm. 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 She was brought in today electively for a robotic assisted thoracoscopic wedge resection with mediastinal lymph node dissection. Postoperative day #0. She is seen in the recovery room. She is awake in no acute distress. She is maintaining O2 saturations in the 90s on 3 L/min per nasal cannula. She is afebrile. Hemodynamically stable. Right-sided chest tube in place to Pleur-evac. No leak detected currently. Glucose 226. Chest x-ray reveals right-sided chest tube in place. New right suprahilar opacity reflecting postoperative changes. No appreciable pneumothorax. Patient was seen today on 09/01/2024, patient continues to do well, I saw this patient yesterday, continues to have right-sided chest tube in place, there is air leak present there is a small tiny pneumothorax in the right apex, hence the right-sided chest tube is not ready to be removed, patient will be reassessed in the next 24 hours and decide whether the chest tube could be removed and then the patient could be sent home. No cough no wheezing she does have some pain fairly well-controlled. Patient is doing extremely well with incentive spirometry WBC count is 11.9 hemoglobin 12.6 basic metabolic profile is normal and renal profile is normal Seen today on 09/02/2024, patient is doing great, her chest tube has been r emoved, no evidence of pneumothorax, patient is being considered for discharge home today. No active pulmonary symptoms, final pathology on her lymph nodes is pending. Objective - Vital Signs Vital signs: Vital Signs Temp 97.3 F L 09/01/24 19:57 Pulse 74 09/02/24 11:54 Resp 18 09/02/24 11:54 BP 148/75 09/02/24 11:54 Pulse Ox 93 L 09/02/24 11:54 FiO2 Intake & Output 10/25/24 10/26/24 10/26/24 18:59 06:59 18:59 Output Total 337 36 Balance -337 -36 Weight 94.8 kg Output: Drainage 22 36 Right Upper Chest 22 36 Urine 315 Uretheral (Younger) 315 Other: Voiding Method Indwelling Catheter Toilet Toilet - Exam GENERAL EXAM: 68-year-old white female in no distress HEAD: Normocephalic. EYES: Normal reaction of pupils, equal size. NOSE: Clear with pink turbinates. THROAT: No erythema or exudates. NECK: No masses, no JVD. CHEST: No chest wall deformity. Chest tube has been removed LUNGS: Equal air entry with no crackles, wheeze, rhonchi or dullness. CVS: S1 and S2 normal with no audible murmur, regular rhythm. ABDOMEN: No hepatosplenomegaly, normal bowel sounds, no guarding or rigidity. SKIN: No rashes CENTRAL NERVOUS SYSTEM: Alert oriented x 3 no gross focal deficit EXTREMITIES: No clubbing edema or cyanosis - Labs CBC & Chem 7: 09/02/24 06:31 09/02/24 06:31 Labs: Abnormal Lab Results - Last 24 Hours (Table) 09/02/24 09/02/24 Range/Units 06:31 06:31 Sodium 135 L (137-145) mmol/L Glucose 120 H (74-99) mg/dL TSH 0.238 L (0.465-4.680) mIU/L Assessment and Plan Assessment: Impression: adenocarcinoma of the right upper lobe, status post robotic assisted tho racoscopic wedge resection with mediastinal lymph node dissection. Postoperative day #2 History of smoking Mild intermittent asthma Anxiety disorder Celiac disease Hypothyroidism Recommendation: Reviewed and discussed chest x-ray findings with the patient Agree with discharge planning Follow-up with Dr. Felix and Dr. Harden postdischarge. Time with Patient: Less than 30
--- NOTE | 2024-09-02 15:26 | P.DS ---
Providers Date of admission: 08/31/24 06:25 Expected date of discharge: 09/02/24 Attending physician: Jeff Felix Consults: 08/31/24 14:07 Consult Physician Routine Consulting Provider: Jean Claude Yen Consult Reason/Comments: post wedge resection Do you want consulting provider notified?: Yes 09/02/24 08:42 Consult Physician Routine Consulting Provider: Duane Enamorado Consult Reason/Comments: New onset atrial fibrillation Do you want consulting provider notified?: Yes Primary care physician: Malachi Carrera [facility] Course: FINAL DIAGNOSIS: Lepidic adenocarcinoma right upper lobe, status post robotic assisted thoracoscopic wedge resection right upper lobe with mediastinal lymph node dissection Paroxysmal atrial fibrillation, unexpected, known common occurrence after thoracic surgery, currently in normal sinus rhythm History of hypertension Mild intermittent asthma Anxiety Hypothyroidism Allergic rhinitis History of kidney stones Celiac disease GERD History of nicotine dependence, quit smoking around 15 years ago PRINCIPAL PROCEDURE: 1. Robotic assisted thoracoscopic wedge resection right upper lobe with mediastinal lymph node dissection HISTORY OF PRESENT ILLNESS: This is a 68-year-old female patient who follows on an outpatient basis with Dr. Maliha Carrera for her primary care and with Dr. Gloria for her pulmonary care. The patient has a history of a right upper lobe mass which was initially diagnosed in 2020, although no further follow-up was completed at that time. Subsequently, they right upper lobe mass was incidentally refound on a CT scan of the head and neck which was performed to rule out stroke. The patient did not have a stroke. For further evaluation a CT scan of the chest was completed which demonstrated a 1.8 cm mass in the right upper lobe, and no lymphadenopathy. For further evaluation a PET CT scan was completed which was positive for uptake in the mass with an SUV of 5.2. For further evaluation the patient underwent a bronchoscopy with washing and biopsies. The washings were suspicious for non-small cell carcinoma. A biopsy of the mass was positive for adenocarcinoma consistent with lepidic pattern. T he patient was subsequently referred to Dr. Jeff Felix from cardiothoracic surgery for further evaluation and treatment recommendations including right upper lobe wedge resection surgery robotically assisted. Risks and benefits were discussed with the patient and knowing and understanding the risks the patient wished to proceed with the surgical procedure. HOSPITAL COURSE: The patient was brought to the hospital on August 31, 2024, taken to the preoperative area, prepared in the usual fashion, and subsequently taken to the operating room where Dr. Felix performed robotic assisted thoraco scopic wedge resection right upper lobe with mediastinal lymph node dissection. Upon completion of surgery the patient was extubated and taken to the recovery room for further monitoring. She was eventually admitted to 3 S. cardiac stepdown for further monitoring and recovery. Her oxygen was titrated down, she was tolerating oral diet, her pain was controlled. Her chest tube was removed on postoperative day #2, and she was ready to be discharged to home on postoperative day #2. The patient did have an episode of paroxysmal atrial fibrillation postoperatively which was treated with amiodarone and was started on a beta-tay metoprolol to tartrate. She was also started on Eliquis 5 mg p.o. twice daily. She is currently in normal sinus rhythm. She received written and verbal instruction regarding his medications, activity restrictions, signs and symptoms requiring physician notification, and follow-up appointments. Plan - Discharge Summary Discharge Rx Participant: Yes New Discharge Prescriptions: New Levothyroxine Sodium [Synthroid] 88 mcg PO DAILY@0630 #30 tab Amiodarone [Cordarone] 400 mg PO BID #47 tab Metoprolol Tartrate [Lopressor] 25 mg PO BID #60 tab Acetaminophen Tab [Tylenol] 650 mg PO Q4HR PRN tab PRN Reason: Mild To Moderate Pain (1 - 6) Apixaban [Eliquis] 5 mg PO BID #60 tab Continue Loratadine [Claritin] 10 mg PO DAILY PRN PRN Reason: allergies Aspirin [Adult Low Dose Aspirin EC] 81 mg PO DAILY Multivitamins, Thera [Multivitamin (formulary)] 1 tab PO DAILY amLODIPine BESYLATE 5 mg PO DAILY Famotidine [Pepcid] 20 mg PO BID Albuterol Sulfate [Proventil Hfa] 1 puff INHALATION Q6H PRN PRN Reason: Wheezing Magnesium 250 mg PO DAILY Losartan [Cozaar] 25 mg PO DAILY LORazepam [Ativan] 0.5 mg PO DIRECTED PRN PRN Reason: Anxiety Discontinued Levothyroxine Sodium [Tirosint] 100 mcg PO DAILY Discharge Medication List Albuterol Sulfate [Proventil Hfa] 1 puff INHALATION Q6H PRN 06/01/23 [History] Famotidine [Pepcid] 20 mg PO BID 06/01/23 [History] amLODIPine BESYLATE 5 mg PO DAILY 06/01/23 [History] Aspirin [Adult Low Dose Aspirin EC] 81 mg PO DAILY 08/16/24 [History] Loratadine [Claritin] 10 mg PO DAILY PRN 08/16/24 [History] Losartan [Cozaar] 25 mg PO DAILY 08/16/24 [History] Magnesium 250 mg PO DAILY 08/16/24 [History] LORazepam [Ativan] 0.5 mg PO DIRECTED PRN 08/28/24 [History] Multivitamins, Thera [Multivitamin (formulary)] 1 tab PO DAILY 08/28/24 [History] Acetaminophen Tab [Tylenol] 650 mg PO Q4HR PRN tab 09/02/24 [Rx] Amiodarone [Cordarone] 400 mg PO BID #47 tab 09/02/24 [Rx] Apixaban [Eliquis] 5 mg PO BID #60 tab 09/02/24 [Rx] Levothyroxine Sodium [Synthroid] 88 mcg PO DAILY@0630 #30 tab 09/02/24 [Rx] Metoprolol Tartrate [Lopressor] 25 mg PO BID #60 tab 09/02/24 [Rx] Follow up Appointment(s)/Referral(s): Duane Enamorado MD [STAFF PHYSICIAN] - 3 Weeks Javier Gloria MD [STAFF PHYSICIAN] - 1 Week Jeff Felix MD [STAFF PHYSICIAN] - 1 Week (The office will call with a follow-up appointment) Activity/Diet/Wound Care/Special Instructions: DISCHARGE INSTRUCTIONS: 1. No driving for 2 weeks, or until physician gives their ok. 2. No lifting, pushing, or pulling more than 10 pounds for 2 weeks. The physician will advise of any restriction changes. 3. Continue pain control per as needed orders. Acetaminophen (Tylenol) 4. Continue with incentive spirometry and splinting until otherwise directed by the physician. 5. Leave chest tube dressing for 48 hours. After that, remove all dressings and shower daily. 6. Routine incision care. No powders, lotions, ointments on incisions. 7. Please call surgeon/SUPERVISOR WOUND for temp greater than 101 F or purulent drainage from incisions. 8. Smoking cessation counseling and program information provided. Quitting smoking is the most important step you can take to improve your health. For additional information and assistance to quit smoking, please call the [place] tobacco quit line (5-028-TAGW-NOW/ ) or online: [email or web address] it-[email or web address] Discharge Disposition: HOME SELF-CARE
[2024-09-02] MEDS ORDERED: APIXABAN 5 MG TAB PO SCH (21:00)
[2024-09-03] MEDS ORDERED: LEVOTHYROXINE 88 MCG TAB PO SCH (06:30)
== END 2024-09-02 16:44 | disposition home or self-care (01) | DRG 164 ==
LOC: 2ORMAIN 06:25 → 3SCARD 13:32
PROVIDERS: ADMIT Thoracic Surgery (Cardiothoracic Vascular Surgery); ATTEND Thoracic Surgery (Cardiothoracic Vascular Surgery)
PROC: 07B74ZX Excision of Thorax Lymphatic, Percutaneous Endoscopic Approach, Diagnostic (ICD-10-PCS; 2024-08-31)
PROC: 8E0W4CZ Robotic Assisted Procedure of Trunk Region, Percutaneous Endoscopic Approach (ICD-10-PCS; 2024-08-31)
PROC: 0BBC4ZZ Excision of Right Upper Lung Lobe, Percutaneous Endoscopic Approach (ICD-10-PCS; principal; 2024-08-31 08:30)
DX: C34.11 Malignant neoplasm of upper lobe, right bronchus or lung (principal); J93.82 Other air leak; I48.0 Paroxysmal atrial fibrillation; E03.9 Hypothyroidism, unspecified; F41.9 Anxiety disorder, unspecified; I10 Essential (primary) hypertension; J45.20 Mild intermittent asthma, uncomplicated; K21.9 Gastro-esophageal reflux disease without esophagitis; K90.0 Celiac disease; I44.0 Atrioventricular block, first degree; Z79.01 Long term (current) use of anticoagulants; Z79.82 Long term (current) use of aspirin; Z79.890 Hormone replacement therapy; Z79.899 Other long term (current) drug therapy; Z87.442 Personal history of urinary calculi; Z87.891 Personal history of nicotine dependence; Z90.710 Acquired absence of both cervix and uterus; Z90.49 Acquired absence of other specified parts of digestive tract; Z88.5 Allergy status to narcotic agent; Z88.0 Allergy status to penicillin; Z88.2 Allergy status to sulfonamides; Z88.1 Allergy status to other antibiotic agents; Z91.040 Latex allergy status
CPT/HCPCS: 64999; 71045; 71046; 80048; 84439; 84443; 85025; 85027; 88305; 88307; 88331; 88332; 94760

== ENCOUNTER → 2025-02-09 | Outpatient (CLI) | payer MEDICARE ==
[2025-02-09 10:20] LABS: African American GFR (CKD) 87 (>60 ml/min/1.73 sqM); Blood Urea Nitrogen 15 mg/dL (7-17); Non-African American GFR(CKD) 75 (>60 ml/min/1.73 sqM)
--- NOTE | 2025-02-09 11:28 | CT ---
EXAMINATION TYPE: CT chest w con DATE OF EXAM: 02/09/2025 COMPARISON: CT chest August 17, 2024 and older studies. CLINICAL INDICATION: Female, 69 years old with history of C34.90 lung ca, MASS REMOVED FROM RIGHT JADE G 08/2024 TECHNIQUE: CT scan of the thorax is performed following with IV Contrast, patient injected with 100 ml mL of Isovue 300. CT DLP: 488.70 mGycm. Automated Exposure Control for Dose Reduction was Utilized. FINDINGS: LUNGS: Mild underlying emphysematous changes redemonstrated. Prior visualized spiculated 18 mm lesion in the central right upper lobe is now not seen. New linear scarring along medial aspect right upper lobe is present. There is a soft tissue density in the region of the azygos vein right suprahilar re gion with linear density that is more prominent from prior study presumed reflecting interval surgery or treatment change. Tiny nodularity periphery of the left lower lobe axial image 41 is stable. No n ew greater than 5 mm pulmonary nodules. No pleural effusion or pneumothorax seen bilaterally. HEART: Size within normal limits. No significant coronary artery calcifications. MEDIASTINUM: There are no greater than 1 cm hilar or mediastinal lymph nodes. No pericardial effusi on is seen. OTHER: No additional significant abnormality is seen. IMPRESSION: Interval successful posttreatment change to the right upper lung. No suspicious new ander s or adenopathy to suggest active neoplastic recurrence. [facility], , 02/09/2025 11:25 AM
== END | disposition home or self-care (01) ==
LOC: RADCTMAIN 09:32
PROVIDERS: ATTEND Internal Medicine Critical Care Medicine
DX: C34.90 Malignant neoplasm of unspecified part of unspecified bronchus or lung (principal)
CPT/HCPCS: 82565; 84520; 71260; Q9967

== ENCOUNTER → 2025-03-05 | Outpatient (CLI) | payer MEDICARE ==
--- NOTE | 2025-03-12 12:40 | P.PCN ---
Date of Procedure: 03/05/25 Operative Findings: Sleep study report Date of service is 03/03/2025 History Patient has stage IA3 non-small cell lung cancer, lipidic adenocarcinoma and the patient has undergone wedge resection of the tumor on 08/31/2024. She recovered well and the follow-up CAT scan of the chest that was done on 02/09/2025 showed no acute abnormalities. No suspicious lung masses. No mediastinal lymphadenopathy. She is obese. Her cardiac rhythm is sinus. However, there is a concern that the patient is experiencing paroxysmal A-fib and the patient will be given a loop recorder. There is also suspicion for obstructive sleep apnea. The patient is obese and she has history of loud snoring. Her portable watch has shown that her sleep quality is poor and quite fragmented. Based on that, the patient is requesting a evaluation. Going to set up this patient for a home sleep study. Pertinent physical findings Height is 5 3, weight is 202, BMI of 35.8, Sturgis score is at 8 Technical description The [employer] ApneaLink system was used to complete his home sleep study. This is a type III home sleep study evaluation. The total recording duration was 7 hours and 39 minutes. The study started 10:25 PM and ended at 6:04 AM. There was a total of 7 hours and 15 minutes of flow monitoring and 626 minutes of oxygen saturation monitoring Results Respiratory evaluation showed a total of 5 obstructive apneas and 6 obstructive hypopneas. The recorded AHI was at 9. Oxygenation analysis The baseline pulse ox was 96% while awake. Average pulse ox during sleep was 90% and the minimum pulse ox was 68% during sleep and the patient spent approximately 1 hour of the sleep time with a pulse ox of below 89% Cardiac summary Average heart rate was 71 with a minimum heart rate of 65 and a maximum heart rate of 93 Assessment Mild ANANT with an AHI of 9 Nocturnal oxygen desaturation with a minimum pulse ox of 68% Mild intermittent bronchial asthma Paroxysmal atrial fibrillation, current rhythm is sinus Stage I adenocarcinoma of the lung with a previous wedge resection of the right upper lobe Hypothyroidism Plan Encourage weight loss Will discuss findings with the patient in the office and we will discuss treatment options. The patient was seen back in follow-up
== END ==
LOC: 3 N SLEEP 13:04
PROVIDERS: ATTEND Internal Medicine Critical Care Medicine
DX: G47.33 Obstructive sleep apnea (adult) (pediatric) (principal); C34.90 Malignant neoplasm of unspecified part of unspecified bronchus or lung; J45.20 Mild intermittent asthma, uncomplicated; I48.0 Paroxysmal atrial fibrillation; E03.9 Hypothyroidism, unspecified; Z88.5 Allergy status to narcotic agent; Z88.1 Allergy status to other antibiotic agents; Z88.0 Allergy status to penicillin; Z88.2 Allergy status to sulfonamides; Z91.040 Latex allergy status; Z91.011 Allergy to milk products; Z91.012 Allergy to eggs; Z87.891 Personal history of nicotine dependence